=== PATIENT | male | born 1970 | race Hispanic/Latino ===

== ENCOUNTER 2019-08-04 21:25 | Emergency (ER) | payer MEDICARE, SELFPAY ==
--- NOTE | ~2019-08-04 | XR_ITS ---
XR foot RT min 3V 08/04/2019 21:45 INDICATION: Patient stepped on nail. Laceration to the plantar aspect of the foot. PROCEDURE: 4 views right foot COMPARISON: No prior studies for comparison. FINDINGS: Fracture, dislocation or subluxation is not identified. Lisfranc joint intact. There are ar terial calcifications, advanced for age. The soft tissues appear within normal limits. No foreign alexx dies are identified. IMPRESSION: 1: NO ACUTE BONE OR JOINT ABNORMALITY IDENTIFIED. Reviewed, dictated and finalized at location A.
[2019-08-04 21:28] VITALS: BP 168/106; PULSE 113; RESP 16; TEMP 36.7; O2SAT 100
--- NOTE | 2019-08-04 21:33 | ED.WOUNDLAC ---
HPI - Wound/Laceration General Chief Complaint: Wound/Laceration Stated Complaint: STEPPED ON A NAIL Time Seen by Provider: 08/04/19 21:31 Source: patient Mode of arrival: ambulatory Limitations: no limitations History of Present Illness HPI narrative: A 49 y/o male presents to the ED with c/o right foot injury. Pt states that earlier today he stepped on a nail. He notes that he was wearing shoes, but the nail went through the shoe. Pt is up-to-date on his Tetanus shot. He adds that he took a [place]ese pill at home and believes it might have been Amoxicillin. Pt reports right foot pain, but denies numbness and tingling. Onset (ago): hour(s) (Today) Extremity Location: Right: foot Patient tetanus UTD: Yes Context: accidental Associated symptoms: pain Related Data Allergies Allergy/AdvReac Type Severity Reaction Status Date / Time No Known Allergies Allergy Verified 08/04/19 21:39 Review of Systems Review of Systems: All systems reviewed & are unremarkable except as noted in HPI and below Musculoskeletal: Musculoskeletal: Reports arthralgias (Right foot) Neurologic: Denies numbness and Denies tingling PMFSH Past Medical History Medical History (Updated 08/04/19 @ 22:31 by Deniz Austin DO) Cataracts, bilateral Chronic back pain History of angina History of blood transfusion History of chemotherapy History of radiation therapy Non-Hodgkin's lymphoma Seizure Surgical History Surgical History (Updated 08/04/19 @ 21:40 by Stephanie Emanuel) History of cataract surgery History of neck surgery History of spinal fusion Social History Social History Smoking status: Former smoker Alcohol intake: current Gender identity (if verbalized by the patient): Male Exam Narrative: Exam Narrative: APPEARANCE: No acute distress, nontoxic, resting in bed Eyes: EOMI HEENT: Normocephalic, atraumatic, RESPIRATORY: No respiratory distress MUSCULOSKELETAl: The base of the right foot is tender to palpation with small puncture wound present. No active bleeding or surrounding signs of infection no erythema no drainage from the wound, there is no wound on the dorsal aspect of the foot patient to move all extremities, dorsalis pedis pulse 2+, neurovascular intact NEURO: Awake and alert. Following commands, speech normal, no focal deficits SKIN:: Warm, dry. Normal Color no rash or lesions Course Course Emergency Course: Discussed with patient results of workup and diagnosis. Discussed need for follow-up with primary care, proper use of medication, and reasons to return to the emergency department. Patient understands and agrees to current treatment plan Vital Signs Vital signs: Vital Signs Temperature 98.1 F 08/04/19 21:28 Pulse Rate 113 H 08/04/19 21:28 Respiratory Rate 16 08/04/19 21:28 Blood Pressure 168/106 H 08/04/19 21:28 Pulse Oximetry 100 08/04/19 21:28 Temperature 98.1 F 08/04/19 21:28 Pulse Rate 113 H 08/04/19 21:28 Respiratory Rate 16 08/04/19 21:28 Blood Pressure 168/106 H 08/04/19 21:28 Pulse Oximetry 100 08/04/19 21:28 MDM - Wound/Laceration Imaging Data Radiologist's impression: ITS Impressions Foot X-Ray 08/04/19 21:59 IMPRESSION: 1: NO ACUTE BONE OR JOINT ABNORMALITY IDENTIFIED. Discharge Plan Discharge Clinical Impression: Puncture wound of foot, right Patient Disposition: Home, Self-Care Condition: Stable Instructions: Antibiotic Form, Puncture Wound (ED) Additional Instructions: Return for increasing pain, signs of infection or any other symptoms of concern. Please soak your foot in warm water for approximately 10 minutes 3 times a day for the next 3 days Prescriptions: New ibuprofen [IBU] 600 mg tablet 600 mg PO Q6H PRN (Reason: pain) Qty: 20 RF: 0 ciprofloxacin HCl [Cipro] 500 mg tablet 500 mg PO Q12H Qty: 20 RF: 0 Follow-up/Referrals: Kenny,Toshia Stafford MD
[2019-08-04] MEDS: IBUPROFEN 600 MG TABLET PO (22:15)
[2019-08-04] MEDS: CIPROFLOXACIN 500 MG TAB PO (22:15)
== END 2019-08-04 22:42 | disposition home or self-care (01) ==
PROVIDERS: Emergency Provider Emergency Medicine; PCP Family Medicine
DX: S91.331A Puncture wound without foreign body, right foot, initial encounter (principal); W45.0XXA Nail entering through skin, initial encounter
CPT/HCPCS: 73630; 99283; A9270

== ENCOUNTER 2019-11-17 00:56 | Emergency (ER) | payer MEDICARE, SELFPAY ==
--- NOTE | ~2019-11-17 | XR_ITS ---
EXAMINATION: XR chest 2V DATE: 11/17/2019 01:33 INDICATION: Chest pain TECHNIQUE: PA and lateral views of the chest were obtained. COMPARISON: Chest CT dated 12/09/2018 FINDINGS: The lungs remain clear with no focal airspace opacities, pulmonary edema, pleural effusion or pneumot horax. The cardiomediastinal silhouette is normal. Postoperative changes at the lower cervical spine IMPRESSION: 1. No acute cardiopulmonary disease. Reviewed, dictated and finalized at location A.
[2019-11-17 00:58] VITALS: BP 187/108; PULSE 67; RESP 16; TEMP 36.8; O2SAT 100
--- NOTE | 2019-11-17 01:03 | ECG_ITS ---
Measurements Intervals [place] Rate: 61 P: 64 [place]: 198 QRS: -34 QRSD: 105 T: -10 QT: 410 QTc: 415 Interpretive Statements SINUS RHYTHM LEFT AXIS DEVIATION VOLTAGE CRITERIA FOR LVH BORDERLINE T WAVE ABNORMALITY- INFERIOR LEADS BORDERLINE ECG Electronically Signed On 11-17-2019 7:37:29 CDT by Renard Butler D.O.
[2019-11-17] MEDS: ASPIRIN 81 MG CHEWABLE TABLET 324 MG PO (01:18)
[2019-11-17 01:29] LABS: Basophils Absolute Auto 0.1 K/mm3 (0.0-0.1); Basophils Percent Auto 0.9 % (0.2-1.2); Eosinophils Absolute Auto 0.4 K/mm3 (0-0.3); Eosinophils Percent Auto 4.1 % (0-4.4); Hematocrit 42.3 % (42.0-52.0); Immature Granulocyte Absolute 0.02 K/mm3 (0.00-0.031); Immature Granulocyte Percent A 0.2 % (0-0.5); Lymphocytes Absolute Auto 5.45 K/mm3 (0.9-3.2); Lymphocytes Percent Auto 63.2 % (18.3-44.2); Mean Corpuscular HGB Conc 35.5 g/dl (32-36); Mean Corpuscular Hemoglobin 29.9 pg (26-34); Mean Corpuscular Volume 84.3 fl (80-100); Mean Platelet Volume 9.5 fl (7.4-10.4); Monocytes Absolute Auto 0.6 K/mm3 (0.1-0.6); Monocytes Percent Auto 6.6 % (2.6-8.5); Neutrophils Absolute Auto 2.2 K/mm3 (1.3-6.7); Platelet Count Result 185 k/mm3 (150-375); Red Blood Count 5.02 M/mm3 (4.6-6.20); Red Cell Distribution Width 14.2 % (11.5-14.5); White Blood Count 8.6 K/mm3 (4.5-10.0)
--- NOTE | 2019-11-17 01:29 | ED.CHESTPAIN ---
HPI - Chest Pain General Chief Complaint: Chest Pain Stated Complaint: chest pain Time Seen by Provider: 11/17/19 01:06 History of Present Illness HPI narrative: Patient is a 49-year-old male who presents ER with left-sided chest pain. Reports the pain is like a cramp in the left upper part of his chest. It lasts for several seconds at a time and then goes away. Is happening for about an hour and has resolved since arriving at the ER. Had no nausea/vomiting/diaphoresis/dyspnea. Has not had similar symptoms before. He does report he was boxing couple days ago which may have aggravated some muscular issues. No lower extremity swelling. Related Data Home Medications Medication Instructions Recorded Confirmed No Home Medications 11/17/19 11/17/19 Allergies Allergy/AdvReac Type Severity Reaction Status Date / Time No Known Allergies Allergy Verified 11/17/19 01:02 Review of Systems Review of Systems: All systems reviewed & are unremarkable except as noted in HPI and below Constitutional: Constitutional: Denies chills, Denies fever(s) and Denies weakness ENT: Denies nasal congestion and Denies sore throat Cardiovascular: Cardiovascular: Reports chest pain, Denies rapid heart rate and Denies radiating jaw, neck or arm pain Respiratory: Respiratory: Denies cough, Denies dyspnea and Denies wheezing Gastrointestinal: Gastrointestinal: Denies abdominal pain, Denies nausea and Denies vomiting PMFSH Past Medical History Medical History (Updated 11/17/19 @ 04:40 by Farzad Nguyen MD) Cataracts, bilateral Chronic back pain History of angina History of blood transfusion History of chemotherapy History of radiation therapy Non-Hodgkin's lymphoma Seizure Surgical History Surgical History (Updated 08/04/19 @ 21:40 by Stephanie Emanuel) History of cataract surgery History of neck surgery History of spinal fusion Social History Social History Smoking status: Former smoker Alcohol intake: current Gender identity (if verbalized by the patient): Male Exam Narrative: Exam Narrative: GENERAL: Well-appearing, well-nourished, and in no acute distress. HEAD: Normocephalic, atraumatic. ENT: Mucous membranes moist. CHEST: Clear to auscultation. No respiratory distress. No reproducible tenderness. HEART: Regular rate and rhythm. Normal peripheral pulses. ABDOMEN: Soft, nontender, nondistended. EXTREMITIES: Normal range of motion. No edema. SKIN: Warm, dry, no rash. NEURO: Alert and oriented x3. Course Course Emergency Course: Trop negative x 2. No CP here. D/c. Vital Signs Vital signs: Vital Signs Temperature 98.2 F 11/17/19 00:58 Pulse Rate 67 11/17/19 00:58 Respiratory Rate 16 11/17/19 00:58 Blood Pressure 187/108 H 11/17/19 00:58 Pulse Oximetry 100 11/17/19 00:58 Temperature 98.2 F 11/17/19 00:58 Pulse Rate 65 11/17/19 02:06 Respiratory Rate 19 11/17/19 02:06 Blood Pressure 151/95 H 11/17/19 02:06 Pulse Oximetry 96 11/17/19 02:06 MDM - Chest Pain Lab Data Result diagrams: 11/17/19 01:24 11/17/19 01:24 Labs: Lab Results 11/17/19 11/17/19 11/17/19 Range/Units 01:24 01:24 01:24 WBC 8.6 (4.5-10.0) K/mm3 RBC 5.02 (4.6-6.20) M/mm3 Hgb 15.0 (14.0-18.0) g/dL Hct 42.3 (42.0-52.0) % MCV 84.3 (80-100) fl MCH 29.9 (26-34) pg MCHC 35.5 (32-36) g/dl RDW 14.2 (11.5-14.5) % Plt Count 185 (150-375) k/mm3 MPV 9.5 (7.4-10.4) fl Immature Gran % (Auto) 0.2 (0-0.5) % Neut % (Auto) 25.0 L (45.5-73.1) % Lymph % (Auto) 63.2 H (18.3-44.2) % [place] % (Auto) 6.6 (2.6-8.5) % Eos % (Auto) 4.1 (0-4.4) % Baso % (Auto) 0.9 (0.2-1.2) % Lymph # (Auto) 5.45 H (0.9-3.2) K/mm3 [place] # (Auto) 0.6 (0.1-0.6) K/mm3 Eos # (Auto) 0.4 H (0-0.3) K/mm3 Baso # (Auto) 0.1 (0.0-0.1) K/mm3 Abs Immat Gran (auto) 0.0
[2019-11-17 01:45] LABS: Blood Urea Nitrogen 12 mg/dL (9-20); Calcium 9.8 mg/dL (8.4-10.2); Carbon Dioxide 26 mmol/L (22-30); Chloride 106 mmol/L (98-107); Estimated CRCL calculation 122 ml/min; Estimated Glomerular Filt Rate > 60; Glucose 122 mg/dL (75-110); Potassium 3.6 mmol/L (3.4-5.0); Sodium 138 mmol/L (137-145)
[2019-11-17 01:47] LABS: Partial Thromboplastin Time 27.9 SECONDS (22.3-36.8)
[2019-11-17 01:57] LABS: Troponin I 0.015 ng/mL (0.000-0.034)
[2019-11-17 02:06] VITALS: BP 151/95; PULSE 65; RESP 19; O2SAT 96
[2019-11-17 03:50] VITALS: BP 139/86; PULSE 57; RESP 16; O2SAT 97
[2019-11-17 04:33] LABS: Troponin I < 0.012 ng/mL (0.000-0.034)
[2019-11-17 04:51] VITALS: BP 154/91; PULSE 53; RESP 14; TEMP 37; O2SAT 99
== END 2019-11-17 04:53 | disposition home or self-care (01) ==
PROVIDERS: Emergency Provider Emergency Medicine; PCP Family Medicine
DX: R07.9 Chest pain, unspecified (principal); Z85.72 Personal history of non-Hodgkin lymphomas; Z92.21 Personal history of antineoplastic chemotherapy; Z92.3 Personal history of irradiation; Z98.42 Cataract extraction status, left eye; Z98.41 Cataract extraction status, right eye; Z98.1 Arthrodesis status; Z87.891 Personal history of nicotine dependence; R94.31 Abnormal electrocardiogram [ECG] [EKG]
CPT/HCPCS: 36415; 71046; 80048; 84484; 85025; 85610; 85730; 93005; 99284; A9270

== ENCOUNTER 2020-10-13 19:33 | Emergency (ER) | payer MEDICARE, SELFPAY ==
[2020-10-13 20:08] VITALS: BP 156/90; PULSE 92; RESP 18; TEMP 36.4; O2SAT 98
--- NOTE | 2020-10-13 21:10 | ED.URI ---
HPI - URI/Sore Throat General Chief Complaint: Upper Respiratory Infection Stated Complaint: wants to be checked for Covid Time Seen by Provider: 10/13/20 20:34 Source: patient Mode of arrival: ambulatory Limitations: no limitations History of Present Illness HPI Narrative: Patient is a 50-year-old male who presents complaining of cough and runny nose for 1 day. He reports at family event yesterday and had positive exposure to Covid. Patient is unvaccinated. He denies chest pain or shortness of breath. He denies all other complaints, requesting Covid testing at this time. MD elicited complaint: cough and rhinorrhea Related Data Home Medications Medication Instructions Recorded Confirmed No Home Medications 11/17/19 11/17/19 Allergies Allergy/AdvReac Type Severity Reaction Status Date / Time No Known Allergies Allergy Verified 11/17/19 01:02 Review of Systems Review of Systems: Narrative: CONSTITUTIONAL: Denies fever, chills, or sweats. EYES: Denies visual changes, redness, or discharge. ENT: Reports rhinorrhea CARDIOVASCULAR: Denies chest pain, palpitations, or edema. RESPIRATORY: Reports cough GASTROINTESTINAL: Denies abdominal pain, nausea, vomiting, or diarrhea. GENITOURINARY: Denies dysuria or hematuria. SKIN: Denies rash or itching. MUSCULOSKELETAL: Denies back pain, joint pain, or myalgia. NEUROLOGIC: Denies headache, numbness, dizziness, or weakness. PSYCHIATRIC: Denies anxiety or depression. [facility] Past Medical History Medical History Cataracts, bilateral Chronic back pain History of angina History of blood transfusion History of chemotherapy History of radiation therapy Non-Hodgkin's lymphoma Seizure Surgical History Surgical History History of cataract surgery History of neck surgery History of spinal fusion Social History Social History Smoking status: Former smoker Alcohol intake: current Gender identity (if verbalized by the patient): Male Comments At the time of signature, I have reviewed and agree with nursing past medical, surgical, social, and family history unless otherwise noted. Please see nursing chart for further information. There is no relevant family history pertinent to the presenting complaint. Exam Narrative: Exam Narrative: GENERAL: Well-appearing, well-nourished, and in no acute distress. HEAD: Normocephalic, atraumatic. EYES: EOMI. No redness or drainage. Conjunctiva are normal. ENT: Mucous membranes pink and moist. Nares clear. No rhinorrhea. Throat normal. Uvula midline. NECK: AROM. Supple. No lymphadenopathy. CHEST: No respiratory distress. Clear to auscultation. HEART: Regular rate and rhythm. No murmur appreciated. Normal peripheral pulses. EXTREMITIES: Normal range of motion. No edema. SKIN: Warm, dry, no rash. NEURO: No focal deficits. Alert and oriented x3. Gait steady. PSYCH: Normal affect. No signs of depression or anxiety. Course Vital Signs Vital signs: Vital Signs Temperature 36.4 C L 10/13/20 20:08 Pulse Rate 92 10/13/20 20:08 Respiratory Rate 18 10/13/20 20:08 Blood Pressure 156/90 H 10/13/20 20:08 Pulse Oximetry 98 10/13/20 20:08 Temperature 36.4 C L 10/13/20 20:08 Pulse Rate 92 10/13/20 20:08 Respiratory Rate 18 10/13/20 20:08 Blood Pressure 156/90 H 10/13/20 20:08 Pulse Oximetry 98 10/13/20 20:08 Reviewed. Patient has been instructed to follow-up with his PCP regarding his blood pressure. MDM - URI/Sore Throat MDM Narrative Medical decision making narrative: Patient tested for Covid at this time. Discussed quarantine. Patient aware of red flags of when to return to the emergency department. Patient is stable for discharge home with outpatient follow-up as instructed. Differential Diagnosis Differential diagnosis: Likely upper
[2020-10-14 19:55] LABS: SARS-CoV-2 RNA PCR Negative
== END 2020-10-13 21:41 | disposition home or self-care (01) ==
PROVIDERS: Emergency Provider Nurse Practitioner
DX: J06.9 Acute upper respiratory infection, unspecified (principal); Z87.891 Personal history of nicotine dependence; Z85.72 Personal history of non-Hodgkin lymphomas; Z92.21 Personal history of antineoplastic chemotherapy; Z92.3 Personal history of irradiation; Z98.42 Cataract extraction status, left eye; Z98.41 Cataract extraction status, right eye; Z20.822 Contact with and (suspected) exposure to COVID-19
CPT/HCPCS: 99283; C9803; U0003; U0005

== ENCOUNTER 2020-11-18 03:56 | Emergency (ER) | payer MEDICARE, MEDICAID, SELFPAY ==
--- NOTE | ~2020-11-18 | CT_ITS ---
EXAMINATION: CT soft tissue neck w con DATE: 11/18/2020 05:26 INDICATION: Left jaw and ear pain TECHNIQUE: Computed tomography (CT) of the neck was performed with 75 mL Omnipaque-350 intravenous co ntrast. The dose-length product was 508.57 mGy-cm. Automated exposure control and iterative reconstru ction technique were employed. COMPARISON: None FINDINGS: No soft tissue or osseous abnormality, particularly at the mastoid air cells. There is a mu cous retention cyst in the left maxillary sinus. Mastoids are pneumatized. No abnormal contrast enhan cement. No cervical lymphadenopathy. Lung apices are unremarkable. There is surgical fixation at C4-5 through C6-7. IMPRESSION: 1. No significant abnormality of the cervical spine to explain patient's symptoms. Reviewed, dictated and finalized at location A. IMPRESSION: 1. No significant abnormality of the cervical spine to explain patient's sympto ms.
[2020-11-18 04:01] VITALS: BP 164/95; PULSE 84; RESP 16; TEMP 36.8; O2SAT 95
--- NOTE | 2020-11-18 04:26 | ED.DENTAL ---
HPI - Dental/Oral General Chief complaint: Dental/Oral Stated complaint: Left dental/jaw pain Time Seen by Provider: 11/18/20 04:26 History of Present Illness HPI Narrative: Left jaw pain for a few days. Radiates throughout the ear and entire left face. Not better or worse with anything. He does not feel any swelling or sores in that side of the mouth. He does say his hear is mildly muffled. He has had most of the teeth on that side of the mouth pulled and usably wears partials. Related Data Allergies Allergy/AdvReac Type Severity Reaction Status Date / Time No Known Allergies Allergy Verified 11/18/20 04:06 Review of Systems Review of Systems: All systems reviewed & are unremarkable except as noted in HPI and below Constitutional: Constitutional: Denies chills, Denies fever(s) and Denies weakness ENT: Denies dizziness and Denies sore throat Cardiovascular: Cardiovascular: Denies chest pain Respiratory: Respiratory: Denies dyspnea Gastrointestinal: Gastrointestinal: Denies nausea Neurologic: Denies numbness and Denies weakness PMFSH Past Medical History Medical History Cataracts, bilateral Chronic back pain History of angina History of blood transfusion History of chemotherapy History of radiation therapy Non-Hodgkin's lymphoma Seizure Surgical History Surgical History History of cataract surgery History of neck surgery History of spinal fusion Social History Social History Smoking status: Former smoker Alcohol intake: current Gender identity (if verbalized by the patient): Male Exam Const: General: no acute distress and alert Nutritional Appearance: well nourished Orientation/consciousness: patient oriented x3 HENMT: Head: normal to inspection Ears: Abnormal EAC present other (left mildly narrowed); no erythema and no edema General nose exam: Normal external nose present Face and sinus: normal facial exam and sinuses nontender Mouth: Yes Normal oral and palatal mucosa present and Yes moist mucous membranes Eyes: Pupils: Equal, round and reactive pupils present EOM: EOMs intact bilaterally Neck: Neck: normal visual inspection and no lymphadenopathy Resp: Effort & Inspection: normal respiratory effort Auscultation: clear to auscultation bilaterally Cardio: Rate: regular rate Rhythm: regular rhythm Neuro: General: patient oriented x3, moves all extremities and CN's II-XI intact bilaterally Course Vital Signs Vital signs: Vital Signs Temperature 36.8 C 11/18/20 04:01 Pulse Rate 84 11/18/20 04:01 Respiratory Rate 16 11/18/20 04:01 Blood Pressure 164/95 H 11/18/20 04:01 Pulse Oximetry 95 11/18/20 04:01 Temperature 36.8 C 11/18/20 04:01 Pulse Rate 79 11/18/20 06:32 Respiratory Rate 18 11/18/20 06:32 Blood Pressure 160/53 H 11/18/20 06:32 Pulse Oximetry 97 11/18/20 06:32 MDM - Dental/Oral Differential Diagnosis Differential diagnosis: Likely gingival abscess, dental abscess and other (otitis media) Medical Records Attestation: I reviewed the patient's medical records. Lab Data Attestation: I reviewed the patient's lab results. Result diagrams: 11/18/20 05:18 Labs: Lab Results 11/18/20 Range/Units 05:18 Creatinine 1.00 (0.8-1.5) mg/dL Estim Creat Clear Calc 82 ml/min Estimated GFR > 60 (59 - ) Imaging Data Radiologist's impression: ITS Impressions Soft Tissue Neck CT 11/18/20 07:44 IMPRESSION: 1. No significant abnormality of the cervical spine to explain patient's symptoms. Discharge Plan Discharge Clinical Impression: Maxillary sinusitis Patient Disposition: Home, Self-Care Condition: Stable Instructions: Antibiotic Form, Sinusitis (ED) Prescriptions: New amoxicillin-pot clavulanate [Augmentin]
--- NOTE | 2020-11-18 05:24 | ECG_ITS ---
Measurements Intervals [place] Rate: 67 P: 78 MS: 253 QRS: -26 QRSD: 98 T: -16 QT: 420 QTc: 446 Interpretive Statements SINUS RHYTHM WITH FIRST DEGREE AV BLOCK VOLTAGE CRITERIA FOR LVH BORDERLINE ST-T WAVE ABNORMALITY- INFERIOR LEADS BASELINE ARTIFACT- I, II, III, AVR, AVL, AVF, V1-V2 ABNORMAL ECG Electronically Signed On 11-18-2020 6:32:23 CDT by Renard Butler D.O.
[2020-11-18] MEDS: AMOXICILLIN/CLAVULANATE K 875-125 MG TAB 1 TABLET PO (06:31)
[2020-11-18 06:32] VITALS: BP 160/53; PULSE 79; RESP 18; O2SAT 97
[2020-11-21 07:47] LABS: Estimated CRCL calculation 82 ml/min; Estimated Glomerular Filt Rate > 60
== END 2020-11-18 06:33 | disposition home or self-care (01) ==
PROVIDERS: Emergency Provider Emergency Medicine; PCP Family Medicine
DX: J32.0 Chronic maxillary sinusitis (principal)
CPT/HCPCS: 70491; 93005; 99284; A9270; Q9967

== ENCOUNTER 2021-06-14 19:39 | Emergency (ER) | payer MEDICARE, MEDICAID, SELFPAY ==
[2021-06-14] VITALS (9 sets, daily range): BP systolic 137–149; BP diastolic 98–102; PULSE 81–98; RESP 16–23; TEMP 36.3–37.2; O2SAT 97–99
--- NOTE | 2021-06-14 22:35 | ED.URI ---
HPI - URI/Sore Throat General Chief Complaint: Upper Respiratory Infection Stated Complaint: FEVER,SORE THROAT Time Seen by Provider: 06/14/21 22:01 Source: patient Mode of arrival: ambulatory Limitations: no limitations History of Present Illness HPI Narrative: This is 51 year old male who presents for evaluation of upper respiratory infection . Patient states he was exposed to a couple people on Friday that were positive for covid. He states he was at bar. Today he developed fever, sore throat and cough. She denies runny nose, chest pain, shortness of breath, nausea, vomiting or diarrhea. Related Data Allergies Allergy/AdvReac Type Severity Reaction Status Date / Time No Known Allergies Allergy Verified 06/14/21 21:41 Review of Systems Review of Systems: All systems reviewed & are unremarkable except as noted in HPI and below PMFSH Past Medical History Medical History Cataracts, bilateral Chronic back pain History of angina History of blood transfusion History of chemotherapy History of radiation therapy Non-Hodgkin's lymphoma Seizure Surgical History Surgical History History of cataract surgery History of neck surgery History of spinal fusion Social History Social History Smoking status: Former smoker Alcohol intake: current Gender identity (if verbalized by the patient): Male Sexual Orientation (if Verbalized by the Patient): Straight or Heterosexual Exam Const: General: no acute distress and alert Orientation/consciousness: patient oriented x3 Eyes: EOM: EOMs intact bilaterally Chest: Chest palpation & inspection: normal inspection of the chest Resp: Effort & Inspection: normal respiratory effort and no retractions Auscultation: clear to auscultation bilaterally Cardio: Rate: regular rate Rhythm: regular rhythm Heart sounds: no murmurs GI: GI Palp: Yes Soft to palpation, No Tenderness to palpation present (GI) and No Guarding due to palpation present (GI) Auscultation: normal bowel sounds Skin: General skin exam: normal color Rashes: no rashes Neuro: General: patient oriented x3, moves all extremities and CN's II-XI intact bilaterally Extrem: General: normal to inspection Psych: Mental Status: mental status grossly normal Affect: normal affect Course Reevaluation(s) Reevaluation #1: I Discussed with patient that he should assume he has covid and quarantine. He understands his results will take 24-48 hours to return. He was given return precautions. Date: 06/14/21 Time: 23:10 Vital Signs Vital signs: Vital Signs Temperature 97.4 F L 06/14/21 19:42 Pulse Rate 98 06/14/21 19:42 Respiratory Rate 18 06/14/21 19:42 Blood Pressure 149/98 H 06/14/21 19:42 Pulse Oximetry 98 06/14/21 19:42 Temperature 99.0 F 06/14/21 21:36 Pulse Rate 86 06/14/21 23:33 Respiratory Rate 18 06/14/21 23:33 Blood Pressure 149/99 H 06/14/21 23:33 Pulse Oximetry 97 06/14/21 23:33 MDM - URI/Sore Throat Lab Data Labs: Lab Results 06/14/21 Range/Units 22:49 SARS-CoV-2 RNA (RT-PCR) Pending Influenza A Screen Negative Reference Range: Negative Influenza B Screen Negative Reference Range: Negative Strep Screen Presumptive Negative *(Reference Range: Negative)* Discharge Plan Discharge Clinical Impression: Upper respiratory infection, Person under investigation for COVID-19 Patient Disposition: Home, Self-Care Condition: Stable Instructions: Antibiotic Form, Upper Respiratory Infection (ED), COVID-19 (Coronavirus Disease 2019) (ED) Additional Instructions: you can take over the coun
[2021-06-15 21:56] LABS: SARS-CoV-2 RNA PCR Positive
== END 2021-06-14 23:36 | disposition home or self-care (01) ==
PROVIDERS: Emergency Provider General Practice; PCP Family Medicine
DX: U07.1 COVID-19 (principal); Z98.42 Cataract extraction status, left eye; Z98.41 Cataract extraction status, right eye; Z92.21 Personal history of antineoplastic chemotherapy; Z92.3 Personal history of irradiation; Z85.72 Personal history of non-Hodgkin lymphomas; Z98.1 Arthrodesis status; Z87.891 Personal history of nicotine dependence
CPT/HCPCS: 87081; 87804; 87880; 99283; C9803; U0003; U0005

== ENCOUNTER 2024-06-26 13:10 | Emergency (ER) | payer OTHER, MEDICARE, SELFPAY ==
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
--- OUTSIDE RECORDS SUMMARY | 2024-06-26 13:12 | XMS_ITS | Continuity of Care Document ---
[facility] Address [address] [place] [address] Phone Care Team Providers Care Airplane Inspector Name Role Phone Piero KRAMER, Eliezer Unavailable Unavailable Advance Directives Directive Yes / No Effective Date File Name No Information Encounters Encounter Description Practice Location Reason(s) For Visit Diagnoses Date Provider Providers Copied on Encounter [facility] [employer] [facility], [address], [place], [place], [id number], [place] tel:[phone] [facility] Piero Martins. [address] , [place], [place], [id number], [place]. tel:[phone] Family History Family Member Type Diagnosis Age At Onset No Information Payers Payer name Insurance type Covered alliance party ID Authoriza tion(s) No Information Social History Type Description Quantity Date Captured Comments Sex Male Smoking Status No Information Chief Complaint And Reason For Visit No Information Reason For Referral Reason For Referral No Information History Of Present Illness Encounter Date Complaint History Of Prese nt Illness No Information Functional Status Date Functional Assessmen t No Information Instructions Date Instruction Additional Infor mation No Information Assessments Type Assessment Date No Information Patient Care Teams Name Effective Dates (start - stop) Status Members No Information
--- OUTSIDE RECORDS SUMMARY | 2024-06-26 13:12 | XMS_ITS | Data Portability ---
Author Organization Katya SANTANAokduy Metzger Address [address] [place] [address] Assessment Encounter Date Assessment Date Assessment LastModified by Organization Details LastModified Time 11/23/2020 11/23/2020 referred to dental clinic at the [facility]. Encouraged to get the coronavirus vaccines. [email or web address] Not available 11/23/2020 10:52:42 Plan of Treatment Reminders Order Date Submit Date Provider Last Modified By Organization Details Last Modified Time Details Appointments None recorded. Lab CMP, serum or plasma 2018 019 [facility], [address] [place] [address], [address], [place], [address], 9 17:09:06 Referral None recorded. Procedures None recorded. Surgeries None recorded. Imaging None recorded. Medication Orders omeprazol e 20 mg capsule,d elayed release 2018 019 [facility][id number], [address], [place], [place], [id number], 9 17:09:03 Nitroling ual 400 mcg/spray [address] [facility] #[id number], [address], [place], [place], [id number], 1 10:04:41 omeprazol e magnesium 20 mg capsule,d elayed release 2019 020 [facility] #[id number], [address], [place], [id number], 0 10:07:36 clindamyc in HCl 300 mg capsule 2020 021 [email or web address] [facility] #[id number], [address], [place], [place], [id number], 23:05:26 Patient TargetsNo targets recorded. Patient Instructions Encounter Date Encounter Id Patient Instructions Last Modified By Organization Details Last Modified Time 12/17/2018 [id number] chest pain: care instructions [email or web address] Not available 12/17/2018 17:08:58 10/20/2019 [id number] gastroesophageal reflux disease (GERD): care instructions [email or web address] Not available 10/20/2019 14:26:10 11/23/2020 [id number] abscessed tooth: care instructions [email or web address] Not available 11/23/2020 10:44:53 Reason for Referral None Reported. Results Created Date Observation Date Name Description Value Unit Range Abnormal Flag Note LastModifiedBy Organization Detail LastModifiedTime 01/28/2001/27/2019 MRI, brain + brain stem, w/o contr ast No observ ation record ed. [facility] ([facility]) [address] [place] [address], [address], 02/03/2019 13:46:54 08/04/19 20 08/04/2019 XR, foot, 3 or more view No observ ation record ed. [place] [address], [place], [address], 08/05/2019 17:39:07 11/17/19 20 11/17/2019 XR, chest , 2 view No observ ation record ed. [address] [place] [address], [address], 11/18/2019 11:06:00 11/19/19 21 11/18/2020 CT, neck, soft tissu e, w/o contr ast No observ ation record ed. [place] [address], [place], [address], 11/21/2020 17:40:26 Result Notes None recorded. Problems No Known Problems Procedures Surgical History None recorded. Imaging Results Imaging Date Name Status LastModified by Organiz ation Details LastModified Time 01/27/2019 MRI, brain + brain stem, w/o contrast completed [facility] ([facility]) [address] [place] [address] [address] [facility], [place], [address], 02/03/2019 13:46:54 08/04/2019 XR, foot, 3 or more view completed [address], [address], 08/05/2019 17:39:07 11/17/2019 XR, chest, 2 view completed [address], [address], 11/18/2019 11:06:00 11/18/2020 CT, neck, soft tissue, w/o contrast completed [address], [address], 11/21/2020 17:40:26 Procedure Notes None recorded. Medical Equipment None Reported. Allergies No known drug allergies Medications Name Sig Start Date Stop Date Status Note LastModified by Organization Details LastModified Time cyclobenzap rine 10 mg tablet 09/23 completed Not Available Not Available Not Available clindamycin HCl 300 mg capsule TAKE 1 CAPSULE BY MOUTH THREE TIMES DAILY active Not Available Not Available No t Available azithromyci n 250 mg tablet TAKE 2 TABLETS (500 MG) BY ORAL ROUTE ONCE DAILY FOR 1 DAY THEN 1 TABLET (250 MG) BY ORAL ROUTE ONCE DAILY FOR 4 DAYS 09/23 completed Not Available Not Available Not Available ibuprofen 800 mg tablet Take 1 tablet 3 times a day by oral route as needed. 09/23 completed Not Available Not Available Not Available ofloxacin 0.3 % eye drops 02/20 completed Not Available Not Available Not Available isosorbide mononitrate ER 30 mg tablet,exte nded release 24 hr TAKE 1 TABLET BY MOUTH EVERY DAY AT BEDTIME 11/23 completed Not Available Not Available Not Available ciprofloxac in 500 mg tablet active Not Available Not Available Not Available tramadol 50 mg tablet 02/20 completed Not Available Not Available Not Available amoxicillin 875 mg tablet Take 1 tablet twice a day by oral route for 10 days. 09/23 completed Not Available Not Available Not Available hydrocodone 7.5 mg-acetamin ophen 325 mg tablet 02/20 completed Not Available Not Available Not Available orphenadrin e citrate ER 100 mg tablet,exte nded release 1 tablet 2x per day as needed for muscle spasms; may cause drowsines s 09/23 completed Not Available Not Available Not Available nitroglycer in 0.4 mg sublingual tablet take one every five minutes as neded for chest pain active Not Available Not Available No t Available omeprazole 20 mg capsule,del ayed release TAKE ONE CAPSULE BY MOUTH EVERY DAY active Not Available Not Available No t Available ibuprofen 600 mg tablet active Not Available Not Available Not Available naproxen 500 mg tablet TAKE 1 TABLET BY MOUTH TWICE DAILY NEEDED 09/23 completed Not Available Not Available Not Available amoxicillin 875 mg-potassiu m clavulanate 125 mg tablet TAKE 1 TABLET BY MOUTH EVERY 12 HOURS active Not Available Not Available No t Available Nitrolingua l 400 mcg/spray one spray under tongue for chest pain, may repeat in 5 minutes if needed. 11/23 completed Not Available Not Available Not Available chlorhexidi ne gluconate 0.12 % mouthwash 02/20 completed Not Available Not Available Not Available omeprazole magnesium 20 mg capsule,del ayed release Take 1 capsule every day by oral route. 03/24 completed Not Available Not Available Not Available Vitals Date Recorded Body height Provider Name an d Address Organization Details Last Updated DateTime 12/17/2018 177.8 cm Anamaria Casas MA [facility] 12/17 16:03:10 Date Recorded Body mass index (BMI) Body weight Provider Name and Address Organization Details Last Updated DateTime 12/17/2018 28.7 kg/m2 66068.47 g Anamaria Casas MA [facility] 12/17/2018 16:03:15 Date Recorded Oxygen saturation Oxygen saturation in Arterial blood by Pulse oximetry Provider Name and Address Organization Details Last Updated DateTime 12/17/2018 996 % 996 % Anamaria Casas MA [facility] 12/17/2018 16:07:25 Date Recorded Heart rate Provider Name an d Address Organization Details Last Updated DateTime 12/17/2018 88 /min Anamaria Casas MA [facility] 12/17 16:07:29 Date Recorded Body temperature Provider Name a nd Address Organization Details Last Updated DateTime 12/17/2018 98.4 [degF] Anamaria Casas MA [facility] 12/17/2018 16:07:36 Date Recorded Body height Provider Name an d Address Organization Details Last Updated DateTime 11/23/2020 177.8 cm Gillian Maldonado MA [facility] 11/23 10:09:08 Date Recorded Body mass index (BMI) Body weight Provider Name and Address Organization Details Last Updated DateTime 11/23/2020 28.7 kg/m2 69522.47 g Gillian Maldonado MA [facility] 11/23/2020 10:09:13 Date Recorded Oxygen saturation Oxygen saturation in Arterial blood by Pulse oximetry Provider Name and Address Organization Details Last Updated DateTime 11/23/2020 97 % 97 % Gillian Maldonado MA [facility] 11/23/2020 10:09:15 Date Recorded Heart rate Provider Name an d Address Organization Details Last Updated DateTime 11/23/2020 71 /min Gillian Maldonado MA [facility] 11/23 10:09:17 Date Recorded Systolic blood pressure Diastolic blood pressure Provider Name and Address Organization Details Last Updated DateTime 12/17/2018 122 mm[Hg] 86 mm[Hg] Anamaria Casas MA [facility] 12/17/2018 16:08:42 Date Recorded Systolic blood pressure Diastolic blood pressure Provider Name and Address Organization Details Last Updated DateTime 11/23/2020 150 mm[Hg] 82 mm[Hg] Gillian Maldonado MA [facility] 11/23/2020 10:08:56 Social History Question Answer Notes LastModified by Organizat ion Details LastModified Time Tobacco Smoking Status Former Smoker quit 2000 CHANEL Hernandez, [facility] 02/20/2017 11:39:41 What Is Your Level Of Alcohol Consumption? None [email or web address] Information not available 11/23/2020 What Was The Date Of Your Most Recent Tobacco Screening? 09/23/2018 Information not available 12/17/2018 How Much Tobacco Do You Smoke? 0.5 PPD Information not available 02/20/2017 How Many Years Have You Smoked Tobacco? 12 Information not available 02/20/2017 Sex: Unknown Functional Status None recorded. Mental Status None recorded. Family History Relationship Description Onset Age of this Age Resolved Age Notes LastModified by Organization Details LastModified Time Father Alcohol abuse [email or web address] Not available 2016 11:39:56 Father Diabetes mellitus thulsema Not available 2016 11:40:26 Father Hypertensive disorder thulsema Not available 2016 11:40:38 Father Hypercholest erolemia thulsema Not available 2016 11:40:49 Father Malignant tumor of prostate thulsema Not available 2016 11:40:57 Mother Hypertensive disorder thulsema Not available 2016 11:40:39 Mother Hypercholest erolemia thulsema Not available 2016 11:40:49 Medical History Condition Response Coronary Artery Disease N Other N High Blood Pressure N Atrial Fibrillation N Kidney or Bladder Problems N Thyroid Problems N GI Problems N Depression N COPD N Blood Clots N Skin Problems N Anemia N Heart Attack ([place]) N Anxiety Disorder N Diabetes N Muscle, Joint, or Bone Problems N Seizures/Epilepsy N Acid Reflux (GERD) N Cancer Y Stroke N Asthma N Allergies N High Cholesterol N Hepatitis N Liver Disease N Headaches N Osteoporosis N Heart Failure N Immunizations Vaccine Type Date Status Note Provider Nam e and Address Organization Details Recorded Time Influenza, split virus, quadrivalent, preservative 7 completed Not Available [facility] 06/12/2019 02:34:20 Influenza, split virus, quadrivalent, PF 9 completed Not Available [facility] 06/12/2019 02:37:30 Influenza, split virus, quadrivalent, preservative 0 completed Mehnaz Kay [place], [place] [facility] 02/22/2020 15:29:16 Influenza, split virus, quadrivalent, PF 3 completed ABRIL Curiel [place], [place] [facility] 05/12/2023 11:21:08 COVID-19, mRNA, LNP-S, PF, 50 mcg/0.5 mL 3 completed Mayela Woods, A[place], [place] [facility] 05/12/2023 11:21:37 Past Encounters Encounter ID Performer Location Encounter Start Date Encounter Closed Date Diagnosis/Indication Diagnosis SNOMED-CT Code Diagnosis ICD10 Code Diagnosis Note [id number] KAYLEE Barraza NP [facility] [address] [place] [address] 02/20/2017 11:06:20 02/21/2017 11:56:01 Family history of diabetes mellitus 570803452 Z83.3 Overweight 291216715 E66 .3 Active or passive immunization 184847295 Z23 History of non-Hodgkins lymphoma 540367852 Z85.72 Fatigue 44436180 R53.83 Screening for malignant neoplasm of prostate 891036846 Z12.5 HIV screening 521557813 Z11.4 Increased blood pressure 49850817 R03.0 will recheck in 1 month. [id number] Ramya Rawls CMA [facility] [address] [place] [address] 02/21/2017 09:57:19 02/24/2017 17:46:18 Family history of diabetes mellitus 891210650 Z83.3 Overweight 164349502 E66 .3 History of non-Hodgkins lymphoma 531515262 Z85.72 Fatigue 12335647 R53.83 Screening for malignant neoplasm of prostate 614478974 Z12.5 HIV screening 985297165 Z11.4 [id number] KAYLEE Barraza NP [facility] [address] [place] [address] 06/27/2017 14:47:57 06/30/2017 10:32:21 Acute pharyngitis 851498234 J02.9 Start oral antibiotic . Ibuprofen/ tylenol prn otc. Saline gargles. Rest. Increase fluids. F/u prn [id number] Christine Banks MA [facility] [address] [place] [address] 07/08/2018 12:07:08 07/09/2018 09:15:09 Active or passive immunization 966731953 Z23 [id number] Toshia Mitchell MD [facility] [address] [place] [address] 09/23/2018 15:44:56 09/28/2018 09:22:10 Memory lapses 690024502 R41.3 History of head injury 101625918 Z87.828 Peripheral nerve disease 694258650 G64 Adult heal th examination 045963162 Z00.00 [id number] Mehnaz Kay MA [facility] [address] [place] [address] 09/25/2018 15:54:33 10/01/2018 12:51:30 [id number] Toshia Mitchell MD [facility] [address] [place] [address] 12/17/2018 14:55:02 12/21/2018 16:25:13 Chest pain 95488626 R07.9 discussed angina vs reflux pain; suspect acid reflux is present. Call 911 if you have chest pain unrelieved by 2 doses of nitrolingu al spray. [id number] BRYAN BLACK [facility] [address] [place] [address] 10/20/2019 12:47:33 10/21/2019 09:41:43 Gastroesophageal reflux disease without esophagitis 180983954 K21.9 patient presents for medication refill. He states it has significan tly reduced his acid reflux. [id number] Mehnaz Kay MA [facility] [address] [place] [address] 02/22/2020 15:27:19 02/23/2020 11:56:16 Administration of influenza vaccine 01327344 Z23 [id number] Toshia Mitchell MD [facility] [address] [place] [address] 11/23/2020 08:04:24 11/28/2020 17:03:15 Dental abscess 154069244 K04.7 [id number] Vonda Duval MD [facility] [address] [place] [address] 05/09/2023 14:42:49 05/14/2023 10:04:26 Active or passive immunization 681852663 Z23 Health Concerns Section Related Observation LastModified by Organization Detai ls LastModified Time None Recorded Concern Status LastModified by Organization Details LastModified Time None Recorded Advance Directives Directive None Recorded Payers Encounter Date Sequence Insurance Name Policy Number Policy Leggett Covered Member ID Leggett Member ID Guarantor Name 12/17/2018 1 MEDICARE B: [employer] - RAILROAD MEDICARE Nataliomichael Portillo [id number] Nataliomichael Portillo 12/17/2018 1 [place]ARE OR MEDICARE REPLACEMENT PRIMARY) Natalio Portillo [id number] Natalio Portillo 10/20/2019 1 MEDICARE B: [employer] - RAILROAD MEDICARE Natalio Portillo [id number] Natalio Portillo 10/20/2019 1 [place] OR [place]IC[place] REPLACEMENT PRIMARY) Natalio Portillo [id number] Natalio Portillo 02/22/2020 1 [place] OR MEDIC[place] REPLACEMENT PRIMARY) Natalio Portillo [id number] Natalio Portillo 02/22/2020 1 [facility] (MEDICARE REPLACEMENT/AD VANTAGE - PPO) [id number] Natalio Portillo [id number] Natalio Portillo 11/23/2020 1 [place] WHEN [place] OR MEDICARE REPLACEMENT PRIMARY) Natalio Portillo [id number] Natalio Portillo 11/23/2020 1 [employer] - DUAL ELIGIBLE (MEDICARE REPLACEMENT/AD VANTAGE - HMO) Natalio Portillo [id number] Natalio Portillo 05/09/2023 1 [place] OR MEDICARE REPLACEMENT PRIMARY) Natalio Portillo [id number] Natalio Portillo 05/09/2023 1 [employer] - DUAL ELIGIBLE (MEDICARE REPLACEMENT/AD VANTAGE - HMO) Natalio Portillo [id number] Natalio Portillo Notes Date Note Type Note Provider Name and Address Organization Details Recorded Time 12/17/2018 text/html Angina/Chest PainReported bypatient.Location :midsternal;radiat es to the left arm Quality:pressure;s queezing;tightness ;stabbing Severity:moderate Duration:lasts seconds Context:exertional ;occurs with emotional stress;occurs with physical stress Alleviating Factors:relieved with NTG; relieved with rest; relieved with antacid; relieved with sitting Aggravating Factors:worse with activity;worse with stress/emotional upset;worse with bending forward Associated Symptoms:no associated palpitations; no associated dizziness;chest discomfort;shortne ss of breath;exertional dyspnea;decrease in exercise capacity;fatigue; no nausea, no vomiting, no diaphoresis or lightheadedness, no blood in the stools. follow up chest pain. patient is not feeling any chest pains as of today. Toshia Mitchell MD Attn: [address] [place], [address], [facility] 12/21/2018 13:38:09 10/20/2019 text/html patient presents for medication refill patient would like refill on omeprazole. states his GERD has improved since being on it. BRYAN BLACK Attn: [address] [place], [address], [facility] 10/20/2019 14:26:27 11/23/2020 text/html Patient has pain in the left mandible. There is a mucous retention cyst in the left maxilla which is asymptomatic. Patient was treated with augmentin at the [facility] emergency department but continues to have pain; will switch to clindamycin tid with meals, and encourage him to eat yogurt on a daily basis to avoid diarrhea. Patient was advised to also see a dentist as soon as possible, such as at the dental school in [place]. Toshia Mitchell MD Attn: [address] [place], [address], [facility] 11/27/2020 23:18:33
--- OUTSIDE RECORDS SUMMARY | 2024-06-26 13:12 | XMS_ITS | Clinical Summary ---
Author Organization [facility] Address [address] [place] [address]. [place], [place] [id number] [place] [address] Care Team Providers Care Helper/Driver Name Role Phone Unavailable Primary Care Provider Unavailabl e Social History Tobacco Use Types Packs/Day Years Used Date Smoking Tobacco: Never Assessed Sex and Gender Information Value Date Recorded Sex Assigned at Not on file Legal Sex Male 6:02 PM CDT Gender Identity Not on file Sexual Orientation Not on file Plan of Treatment Health Maintenance Due Date Last Done Comments Colorectal Cancer Screening Colonoscopy (10 Years) 1972 Annual Physical 1975 Hepatitis C 1990 DTaP, Tdap and Td Vaccines ( 1 - Tdap) 1991 Hepatitis B Vaccines (1 of 3 - 19+ 3-dose series) 1991 Zoster Vaccines (1 of 2) 2022 COVID-19 Vaccine ( - 2023-2 5 season) 2024 Influenza Adult (#1) 2024 Meningococcal B Vaccine Aged Out No l onger eligible based on patient's age to complete this topic Meningococcal Vaccine Aged Out No frederick lawrence eligible based on patient's age to complete this topic Pneumococcal Vaccine: Pediat rics (0 to 5 Years) and At-Risk Patients (6 to 64 Years) Aged Out No longer eligible b ased on patient's age to complete this topic RSV Immunizations Under 20 Months Aged Out No longer eligible based on patient's age to complete this topic
[2024-06-26 13:27] VITALS: BP 120/81; PULSE 75; RESP 16; TEMP 36.6; O2SAT 98
[2024-06-26 14:39] VITALS: BP 123/83; PULSE 75; RESP 16; TEMP 36.7; O2SAT 98
[2024-06-26 15:18] VITALS: BP 127/93; PULSE 78; RESP 16; TEMP 36.5; O2SAT 98
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
--- OUTSIDE RECORDS SUMMARY | 2024-06-26 15:25 | XMS_ITS | Clinical Summary ---
Author Organization [facility] Address [address] [place] [address]. [place], [place] [address] [place] [address] Care Team Providers Care Milk Tester Name Role Phone Unavailable Primary Care Provider [...]
--- OUTSIDE RECORDS SUMMARY | 2024-06-26 15:25 | XMS_ITS | Continuity of Care Document ---
Author Organization [facility] Address [address] [place] [address] Phone Care Team Providers Care Revolving Inventory Clerk Name Role Phone Piero KRAMER, Eliezer Unavailable Unavailable Advance Directives Directive Yes / No Effective Date File Name No Information Encounters Encounter Description Practice Location Reason(s) For Visit Diagnoses Date Provider Providers Copied on Encounter [employer] [facility], [address], [place], [place], [address], [place] tel:[phone] [facility] Piero Martins. [address] , [place], [place], [address], [place]. tel:[phone] Family History Family Member Type Diagnosis Age At Onset No Information Payers Payer name Insurance type Covered democrat ID Authoriza tion(s) No Information Social History [...]
[2024-06-26] MEDS: fentaNYL CITRATE INJ (*CRX) 100 MCG/2 ML VIAL 50 MCG IV PUSH (15:52)
[2024-06-26] MEDS: ONDANSETRON INJ 4 MG/2 ML VIAL IV PUSH (15:53)
[2024-06-26 16:06] LABS: Basophils Absolute Auto 0.1 K/mm3 (0.0-0.1); Basophils Percent Auto 0.7 % (0.2-1.2); Eosinophils Absolute Auto 0.1 K/mm3 (0-0.3); Eosinophils Percent Auto 1.2 % (0-4.4); Hematocrit 43.3 % (42.0-52.0); Hemoglobin 15.3 g/dL (14.0-18.0); Immature Granulocyte Absolute 0.03 K/mm3 (0.00-0.031); Immature Granulocyte Percent A 0.4 % (0-0.5); Lymphocytes Absolute Auto 1.74 K/mm3 (0.9-3.2); Lymphocytes Percent Auto 22.7 % (18.3-44.2); Mean Corpuscular HGB Conc 35.3 g/dl (32-36); Mean Corpuscular Hemoglobin 29.5 pg (26-34); Mean Corpuscular Volume 83.4 fl (80-100); Mean Platelet Volume 9.2 fl (7.4-10.4); Monocytes Absolute Auto 0.5 K/mm3 (0.1-0.6); Monocytes Percent Auto 6.7 % (2.6-8.5); Neutrophils Absolute Auto 5.2 K/mm3 (1.3-6.7); Neutrophils Percent Auto 68.3 % (45.5-73.1); Platelet Count Result 185 k/mm3 (150-375); Red Blood Count 5.19 M/mm3 (4.6-6.20); Red Cell Distribution Width 14.6 % (11.5-14.5); White Blood Count 7.7 K/mm3 (4.5-10.0)
--- NOTE | 2024-06-26 16:13 | ECG_ITS ---
Test Date: 2024-06-26 17:35:30 Measurements Intervals [place] Rate: 66 P: 70 [place]: 197 QRS: -13 QRSD: 88 T: -45 QT: 434 QTc: 455 Interpretive Statements SINUS RHYTHM WITH OCCASIONAL SUPRAVENTRICULAR PREMATURE COMPLEXES NONSPECIFIC T-WAVE ABNORMALITY- INF/LAT LEADS BORDERLINE ECG No previous ECG available for comparison Electronically Signed On 06-26-2024 18:21:21 THREAD MARKER by Renard Butler D.O.
[2024-06-26 16:19] LABS: Alanine Aminotransferase 29 U/L (6-50); Albumin Level 4.4 g/dL (3.5-5.1); Alkaline Phosphatase 104 U/L (38-126); Anion Gap 13 mmol/L (4-12); Aspartate Amino Transferase 30 U/L (17-59); Bilirubin,Total 1.5 mg/dL (0.2-1.3); Blood Urea Nitrogen 15 mg/dL (9-20); Calcium 9.3 mg/dL (8.4-10.2); Carbon Dioxide 23 mmol/L (22-30); Chloride 102 mmol/L (98-107); Estimated CRCL calculation 118 ml/min; Estimated Glomerular Filt Rate > 60; Glucose 89 mg/dL (65-110); Potassium 4.1 mmol/L (3.4-5.0); Sodium 138 mmol/L (137-145)
[2024-06-26 17:26] VITALS: BP 128/77; PULSE 66; RESP 16; O2SAT 99
[2024-06-26 17:54] VITALS: BP 120/90; PULSE 80; RESP 16; TEMP 36.6; O2SAT 97
== END 2024-06-26 17:59 | disposition home or self-care (01) ==
PROVIDERS: Emergency Provider Emergency Medicine
DX: M79.10 Myalgia, unspecified site (principal); V49.9XXA Car occupant (driver) (passenger) injured in unspecified traffic accident, initial encounter; W22.10XA Striking against or struck by unspecified automobile airbag, initial encounter; Z85.72 Personal history of non-Hodgkin lymphomas; Z87.891 Personal history of nicotine dependence
CPT/HCPCS: 36415; 70450; 71260; 72125; 74177; 80053; 85025; 93005; 96374; 96375; 99284; J2405; J3010; Q9967

== ENCOUNTER 2024-08-07 04:15 | Inpatient (IN) | payer MEDICARE, SELFPAY ==
[2024-08-07] VITALS (14 sets, daily range): BP systolic 113–147; BP diastolic 66–98; PULSE 73–87; RESP 16–24; TEMP 36.1–36.9; O2SAT 89–98; BMI 24.0
--- NOTE | ~2024-08-07 | CT_ITS ---
Clinical Indication: Shortness of breath CT Scan of the Chest with Contrast: Technique: Contiguous sections were acquired throughout the chest after intravenous administration of 100 cc of Omnipaque 350. Dose reduction technique was used on this scan by utilizing automated expos ure control and iterative reconstruction technique. The dose-length product (DLP) was 270.45 mGy-cm. COMPARISON: 06/26/2024 Findings: There is no evidence of any significant mediastinal, hilar or axillary lymphadenopathy. There is no f illing defect in the pulmonary arterial tree to suggest pulmonary embolus. There is no evidence of ao rtic dissection or aneurysm. No pericardial effusion. Small bilateral pleural effusions are present. There is patchy groundglass pulmonary disease, worse in the lower lobes, with more focal areas of byron und glass opacity upper lobes. Possible minimal interstitial thickening in the lungs. Images through the upper abdomen reveal no abnormalities. Impression: No evidence of pulmonary embolus, aortic dissection, or aortic aneurysm. Small bilateral pleural effusions with mild patchy alveolar and interstitial pulmonary edema pattern. Correlate clinically for infection, which is felt to be somewhat less likely. Reviewed, dictated and finalized at [facility]. Impression: No evidence of pulmonary embolus, aortic dissection, or aortic aneurysm. Small bilateral pleural effusions with mild patchy alveolar and interstitial pu lmonary edema pattern. Correlate clinically for infection, which is felt to be somewhat less likely.
--- NOTE | ~2024-08-07 | XR_ITS ---
Clinical Indication: Chest pain PA and lateral views of the chest: Comparison: 11/17/2019 Findings: There is mild patchy, hazy airspace disease bilaterally. No pleural effusion or pneumothora x.. Cardiomediastinal silhouette is within normal limits. Bones and soft tissues are unremarkable. Impression: Mild patchy bilateral airspace disease. Correlate for mild pulmonary edema versus infection. Reviewed, dictated and finalized at [facility]. Impression: Mild patchy bilateral airspace disease. Correlate for mild pulmonary edema vers us infection.
--- NOTE | 2024-08-07 04:16 | ECG_ITS ---
Test Date: 2024-08-07 04:24:59 Measurements Intervals [place] Rate: 87 P: 69 [place]: 191 QRS: 32 QRSD: 93 T: 61 QT: 378 QTc: 455 Interpretive Statements SINUS RHYTHM NONSPECIFIC T-WAVE ABNORMALITY Electronically Signed On 08-08-2024 13:55:10 CDT by Tejas Zimmerman D.O
--- OUTSIDE RECORDS SUMMARY | 2024-08-07 04:17 | XMS_ITS | Clinical Summary ---
Author Organization [facility] Address [address] [place] [address] Care Team Providers Care Housekeeping Staff Name Role Phone Unavailable Primary Care Provider [...]
--- OUTSIDE RECORDS SUMMARY | 2024-08-07 04:17 | XMS_ITS | Data Portability ---
Author Organization Katya SANTANAokduy Metzger Address [address] [facility] [place] [address] Assessment Encounter Date Assessment Date Assessment LastModified by Organization Details LastModified Time 11/23/2020 11/23/2020 referred to dental clinic at the [facility]. Encouraged to get the coronavirus vaccines. [email or web address] Not available 11/23/2020 10:52:42 Plan of Treatment Reminders Order Date Submit Date Provider Last Modified By Organization Details Last Modified Time Details Appointments None recorded. Lab CMP, serum or plasma 2018 019 [facility], [address] [place] [address], [address], [place], [address], 9 17:09:06 Referral None recorded. Procedures None recorded. Surgeries None recorded. Imaging None recorded. Medication Orders clindamyc in HCl 300 mg capsule 2020 021 [email or web address] [facility], [address] [place], [place], [id number], 1 23:05:26 omeprazol e magnesium 20 mg capsule,d elayed release 2019 020 [email or web address] [facility] #[id number], [address], [place], [place], [id number], 0 10:07:36 omeprazol e 20 mg capsule,d elayed release 2018 019 [facility] #21932, [address], [place], [id number], 9 17:09:03 Nitroling ual 400 mcg/spray 2018 019 [facility] #68212, [address], [place], [place], [id number], 10:04:41 Patient TargetsNo targets recorded. Patient Instructions Encounter Date Encounter Id Patient Instructions Last Modified By Organization Details Last Modified Time 12/17/2018 [id number] chest pain: care instructions [email or web address] Not available 12/17/2018 17:08:58 10/20/2019 [id number] gastroesophageal reflux disease (GERD): care instructions [email or web address] Not available 10/20/2019 14:26:10 11/23/2020 [id number] abscessed tooth: care instructions [email or web address] Not available 11/23/2020 10:44:53 Reason for Referral None Reported. Results Created Date Observation Date Name Description Value Unit Range Abnormal Flag Note LastModifiedBy Organization Detail LastModifiedTime 01/28/2001/27/2019 MRI, brain + brain stem, w/o contr ast No observ ation record ed. [facility] (Imaging) [address] [place] [address], [address], 02/03/2019 13:46:54 08/04/19 20 08/04/2019 XR, foot, 3 or more view No observ ation record ed. [address] [facility], [place], [address], 08/05/2019 17:39:07 11/17/19 20 11/17/2019 XR, chest , 2 view No observ ation record ed. [address], [place], [address], 11/18/2019 11:06:00 11/19/19 21 11/18/2020 CT, neck, soft tissu e, w/o contr ast No observ ation record ed. [address], [place], [address], 11/21/2020 17:40:26 Result Notes None recorded. Problems No Known Problems Procedures Surgical History None recorded. Imaging Results Imaging Date Name Status LastModified by Organiz ation Details LastModified Time 01/27/2019 MRI, brain + brain stem, w/o contrast completed [facility] (Im[facility]) [address] [place] [address] [address] [facility], [place], [address], 02/03/2019 13:46:54 08/04/2019 XR, foot, 3 or more view completed [address], [address], 08/05/2019 17:39:07 11/17/2019 XR, chest, 2 view completed [address], [address], 11/18/2019 11:06:00 11/18/2020 CT, neck, soft tissue, w/o contrast completed [address], [address], 11/21/2020 17:40:26 Procedure Notes None recorded. Medical [...] Not Available Vitals Date Recorded Body height Body mass index (BMI) Body weight Oxygen saturation Oxygen saturation in Arterial blood by Pulse oximetry Heart rate Body temperature Systolic blood pressure Diastolic blood pressure Provider Name and Address Organization Details Last Updated DateTime 9 177.8 cm 28.7 kg/m2 18129.4 7 g 996 % 996 % 88 /min 98.4 [degF] 122 mm[Hg] 86 mm[Hg] Anamaria Casas [place] [facility] 9 16:08:42 Date Recorded Body height Body mass index (BMI) Body weight Oxygen saturation Oxygen saturation in Arterial blood by Pulse oximetry Heart rate Systolic blood pressure Diastolic blood pressure Provider Name and Address Organization Details Last Updated DateTime 1 177.8 cm 28.7 kg/m2 88253.4 7 g 97 % 97 % 71 /min 150 mm[Hg] 82 mm[Hg] Gillian Maldonado MA [facility] 1 10:08:56 Social History Question Answer Notes LastModified by Organizat ion Details LastModified Time Tobacco Smoking Status Former Smoker quit 2000 Ramya Rawls CMA null, [facility] 02/20/2017 11:39:41 What Is Your Level Of [...] Response Coronary Artery Disease N Other N Atrial Fibrillation N High Blood Pressure N Thyroid Problems N Kidney or Bladder Problems N Depression N COPD N Blood Clots N GI Problems N Skin Problems N Anemia N Heart Attack ([place]) N Diabetes N Anxiety Disorder N Muscle, Joint, or Bone Problems N Seizures/Epilepsy N Acid Reflux (GERD) N Cancer Y Stroke N Allergies N Asthma N High Cholesterol N Hepatitis N Liver Disease N Headaches N Osteoporosis N Heart Failure N Immunizations Vaccine Type Date Status Note Provider Nam e and Address Organization Details Recorded Time Influenza, split virus, quadrivalent, preservative 7 completed Not Available [facility] 06/12/2019 02:34:20 Influenza, split virus, quadrivalent, PF 9 completed Not Available [facility] 06/12/2019 02:37:30 Influenza, split virus, quadrivalent, preservative 0 completed Mehnaz Kay [place] null, [place] [facility] 02/22/2020 15:29:16 Influenza, split virus, quadrivalent, PF 3 completed Mayela Woods R[place], [place] [facility] 05/12/2023 11:21:08 COVID-19, mRNA, LNP-S, PF, 50 mcg/0.5 mL 3 completed Mayela Woods RMA [place], [place] [facility] 05/12/2023 11:21:37 Past Encounters Encounter ID Performer Location Encounter Start Date Encounter Closed Date Diagnosis/Indication Diagnosis SNOMED-CT Code Diagnosis ICD10 Code Diagnosis Note [id number] KAYLEE Barraza NP [facility] [address] [place] [address] 02/20/2017 11:06:20 02/21/2017 11:56:01 Family history of diabetes mellitus 501990620 Z83.3 Overweight 252734894 E66 .3 Active or passive immunization 800927242 Z23 History of non-Hodgkins lymphoma 455754002 Z85.72 Fatigue 91891612 R53.83 Screening for malignant neoplasm of prostate 514536213 Z12.5 HIV screening 969075976 Z11.4 Increased blood pressure 66296239 R03.0 will recheck in 1 month. [id number] Ramya Rawls CMA [facility] [address] [place] [address] 02/21/2017 09:57:19 02/24/2017 17:46:18 Family history of diabetes mellitus 676651992 Z83.3 Overweight 293065639 E66 .3 History of non-Hodgkins lymphoma 314730603 Z85.72 Fatigue 39996352 R53.83 Screening for malignant neoplasm of prostate 351066587 Z12.5 HIV screening 196300579 Z11.4 [id number] KAYLEE Barraza NP [facility] [address] [place] [address] 06/27/2017 14:47:57 06/30/2017 10:32:21 Acute pharyngitis 098869250 J02.9 Start oral antibiotic . Ibuprofen/ tylenol prn otc. Saline gargles. Rest. Increase fluids. F/u prn [id number] Christine Banks MA [facility] [address] [place] [address] 07/08/2018 12:07:08 07/09/2018 09:15:09 Active or passive immunization 451629910 Z23 [id number] Toshia Mitchell MD [facility] [address] [place] [address] 09/23/2018 15:44:56 09/28/2018 09:22:10 Memory lapses 420042721 R41.3 History of head injury 812605204 Z87.828 Peripheral nerve disease 032813592 G64 Adult heal th examination 443026173 Z00.00 [id number] Mehnaz Kay MA [facility] [address] [place] [address] 09/25/2018 15:54:33 10/01/2018 12:51:30 [id number] Toshia Mitchell MD [facility] [address] [place] [address] 12/17/2018 14:55:02 12/21/2018 16:25:13 Chest pain 16858774 R07.9 discussed angina vs reflux pain; suspect acid reflux is present. Call 911 if you have chest pain unrelieved by 2 doses of nitrolingu al spray. [id number] BRYAN BLACK [facility] [address] [place] [address] 10/20/2019 12:47:33 10/21/2019 09:41:43 Gastroesophageal reflux disease without esophagitis 719865803 K21.9 patient presents for medication refill. He states it has significan tly reduced his acid reflux. [id number] Mehnaz Kay MA [facility] [address] [place] [address] 02/22/2020 15:27:19 02/23/2020 11:56:16 Administration of influenza vaccine 10459884 Z23 [id number] Toshia Mitchell MD [facility] [address] [place] [address] 11/23/2020 08:04:24 11/28/2020 17:03:15 Dental abscess 599703139 K04.7 [id number] Vonda Duval MD [facility] [address] [place] [address] 05/09/2023 14:42:49 05/14/2023 10:04:26 Active or passive immunization 325447584 Z23 Health Concerns Section Related Observation LastModified by Organization Detai ls LastModified Time None Recorded Concern Status LastModified by Organization Details LastModified Time None Recorded Advance Directives Directive None Recorded Payers Encounter Date Sequence Insurance Name Policy Number Policy Leggett Covered Member ID Leggett Member ID Guarantor Name 12/17/2018 1 MEDICARE B: [employer] - RAILROAD MEDICARE Nataliomichael Portillo [id number] Natalio Portillo 12/17/2018 1 [place] WHEN MEDICARE OR MEDICARE REPLACEMENT PRIMARY) Natalio Portillo [id number] Natalio Portillo 10/20/2019 1 MEDICARE B: [employer] - RAILROAD MEDICARE Natalio Portillo [id number] Natalio Portillo 10/20/2019 1 [place]ARE OR [place]ICARE REPLACEMENT PRIMARY) Natalio Portillo [id number] Natalio Portillo 02/22/2020 1 [place] OR MEDICARE REPLACEMENT PRIMARY) Natalio Portillo [id number] Natalio Portillo 02/22/2020 1 [facility] (MEDICARE REPLACEMENT/AD VANTAGE - PPO) [id number] Natalio Portillo [id number] Natalio Portillo 11/23/2020 1 [place] OR MEDICARE REPLACEMENT PRIMARY) Natalio Portillo [id number] Natalio Portillo 11/23/2020 1 [employer] - DUAL ELIGIBLE (MEDICARE REPLACEMENT/AD VANTAGE - HMO) Natalio Portillo [id number] Natalio Portillo 05/09/2023 1 [place] WHEN [place] OR MEDICARE REPLACEMENT PRIMARY) Natalio Portillo [id number] Natalio Portillo 05/09/2023 1 [employer] - DUAL ELIGIBLE (MEDICARE REPLACEMENT/AD VANTAGE - HMO) Natalio Portillo [id number] Natalio Portillo Notes Date Note Type Note [...] today. Toshia Mitchell MD Attn: [address]ing[address] [place], [address], [facility] 12/21/2018 13:38:09 10/20/2019 text/html patient presents for medication refill patient would like refill on omeprazole. states his GERD has improved since being on it. BRYAN BLACK Attn: [address]ing[address] [place], [address], [facility] 10/20/2019 14:26:27 11/23/2020 text/html Patient has pain in the left mandible. There is a mucous retention cyst in the left maxilla which is asymptomatic. Patient was treated with augmentin at the [facility] emergency department but continues to have pain; will switch to clindamycin tid with meals, and encourage him to eat yogurt on a daily basis to avoid diarrhea. Patient was advised to also see a dentist as soon as possible, such as at the dental school in [place]. Toshia Mitchell MD Attn: [address]ing[address] [facility], [place], [address], [facility] 11/27/2020 23:18:33
[2024-08-07 04:53] LABS: Basophils Absolute Auto 0.1 K/mm3 (0.0-0.1); Basophils Percent Auto 0.9 % (0.2-1.2); Eosinophils Absolute Auto 0.4 K/mm3 (0-0.3); Eosinophils Percent Auto 5.8 % (0-4.4); Hematocrit 41.5 % (42.0-52.0); Hemoglobin 14.3 g/dL (14.0-18.0); Immature Granulocyte Absolute 0.01 K/mm3 (0.00-0.031); Immature Granulocyte Percent A 0.1 % (0-0.5); Lymphocytes Absolute Auto 3.82 K/mm3 (0.9-3.2); Lymphocytes Percent Auto 51.5 % (18.3-44.2); Mean Corpuscular HGB Conc 34.5 g/dl (32-36); Mean Corpuscular Hemoglobin 29.1 pg (26-34); Mean Corpuscular Volume 84.3 fl (80-100); Mean Platelet Volume 9.1 fl (7.4-10.4); Monocytes Absolute Auto 0.4 K/mm3 (0.1-0.6); Monocytes Percent Auto 5.5 % (2.6-8.5); Neutrophils Absolute Auto 2.7 K/mm3 (1.3-6.7); Neutrophils Percent Auto 36.2 % (45.5-73.1); Platelet Count Result 197 k/mm3 (150-375); Red Blood Count 4.92 M/mm3 (4.6-6.20); Red Cell Distribution Width 15.3 % (11.5-14.5); White Blood Count 7.4 K/mm3 (4.5-10.0)
[2024-08-07 05:02] LABS: INR 1.1; Prothrombin Time 14.5 Seconds (11.1-14.7)
[2024-08-07 05:03] LABS: Partial Thromboplastin Time 27.3 Seconds (22.3-36.8)
[2024-08-07 05:05] LABS: Alanine Aminotransferase 40 U/L (6-50); Albumin Level 4.2 g/dL (3.5-5.1); Alkaline Phosphatase 102 U/L (38-126); Anion Gap 10 mmol/L (4-12); Aspartate Amino Transferase 36 U/L (17-59); Bilirubin,Total 0.7 mg/dL (0.2-1.3); Blood Urea Nitrogen 19 mg/dL (9-20); Calcium 8.9 mg/dL (8.4-10.2); Carbon Dioxide 21 mmol/L (22-30); Chloride 109 mmol/L (98-107); Estimated CRCL calculation 115 ml/min; Estimated Glomerular Filt Rate > 60; Glucose 99 mg/dL (65-110); Lipase 70 U/L (23-300); Potassium 3.4 mmol/L (3.4-5.0); Sodium 140 mmol/L (137-145)
[2024-08-07 05:16] LABS: Troponin I 0.023 ng/mL (0.000-0.034)
--- OUTSIDE RECORDS SUMMARY | 2024-08-07 07:35 | XMS_ITS | Clinical Summary ---
Author Organization [facility] Address [address] [place] [id number] Care Team Providers Care Tenter Feeder Name Role Phone Unavailable Primary Care Provider [...]
[2024-08-07] MEDS: ASPIRIN 81 MG CHEWABLE TABLET 324 MG PO (08:07)
--- NOTE | 2024-08-07 08:23 | ED.GENADULT ---
HPI - General Adult General Chief complaint: Chest Pain Stated complaint: CP/SOB Time Seen by Provider: 08/07/24 07:18 History of Present Illness HPI narrative: 54-year-old male who presented to the emergency department for evaluation for cough congestion shortness of breath and chest pain. Patient states symptoms started this morning. Patient does have prior history of non-Hodgkin's lymphoma Related Data Home Medications ?Medication ?Instructions ?Recorded ?Confirmed ?Last Taken ?Type ibuprofen 100 mg tablet 200 mg PO ONCE PRN pain 08/07/24 08/07/24 Unknown History Allergies Allergy/AdvReac Type Severity Reaction Status Date / Time No Known Allergies Allergy Verified 08/07/24 04:15 Review of Systems Review of Systems: All systems reviewed & are unremarkable except as noted in HPI and below PMFSH Past Medical History Medical History History of radiation therapy History of chemotherapy Non-Hodgkin's lymphoma Chronic back pain Seizure Cataracts, bilateral Surgical History Surgical History History of spinal fusion History of neck surgery History of cataract surgery Social History Social History Smoking packs per day: 2 Smoking cigarettes per day: 40.0 Years smoked: 10 Smoking pack-years: 20.00 Smoking status: Former smoker Tobacco type: cigarettes Alcohol intake: current Drinks per week: 1 Substance use: never Substance use type: does not use Do You Feel Safe in your Home?: Yes Lack of Transportation: No Lack of Food: Never True Current Housing: I Have Housing Concerned About Future Housing: No Difficulty Paying Gas/Electric Bills: YES Difficulty Paying for Meds: No Currently Unemployed: No Education: Decline to Answer Difficulty w/ Childcare or Family Care: No Gender identity (if verbalized by the patient): Male Sexual Orientation (if Verbalized by the Patient): Straight or Heterosexual Spiritual care concerns: No Exam Narrative: APPEARANCE: Well appearing, no pain, no distress, well-nourished. HEAD: normocephalic, atraumatic. EYES: PERRLA/EOMI, conjunctivae clear. NOSE: Normal no drainage EARS:TMS clear with good light reflex. THROAT: Pharynx clear, no exudate. NECK: Supple. No adenopathy, no masses. RESPIRATORY: Airway patent, respirations nonlabored. Clear to auscultation bilaterally, no rales, rhonchi, wheezing. CARDIOVASCULAR: Regular rate and rhythm without murmurs rubs or gallops. ABDOMINAL: Soft, nontender, nondistended, normal bowel sounds MUSCULOSKELETAL: Left lower extremity tenderness to palpate NEURO: Alert. Cranial nerves II through XII intact. Grossly intact SKIN: Warm, dry. Normal Color Course Vital Signs Vital signs: Vital Signs Temperature 97.0 F L 08/07/24 04:17 Pulse Rate 87 08/07/24 04:17 Respiratory Rate 19 08/07/24 04:17 Blood Pressure 147/97 H 08/07/24 04:17 Pulse Oximetry 93 08/07/24 04:17 Oxygen Delivery Room Air 08/07/24 04:17 Temperature 98.5 F 08/07/24 15:43 Pulse Rate 83 08/07/24 15:43 Respiratory Rate 18 08/07/24 15:43 Blood Pressure 136/81 08/07/24 15:43 Pulse Oximetry 98 08/07/24 15:43 Oxygen Delivery Room Air 08/07/24 15:39 Oxygen Flow Rate 2 08/07/24 08:07 Medical Decision Making MDM Narrative Medical decision making narrative: 54-year-old male presents to the emergency department for evaluation for shortness of breath with cough congestion and chest pain. CTA was negative for pulmonary embolism. Patient is currently afebrile with no leukocytosis hemoglobin of 14.3, no significant abnormalities on the patient's CMP, patient's proBNP was 1530. Imaging was more concerning for pulmonary edema over infection. This would be new onset CHF. Patient was treated with Lasix in the emergency department. Case discussed with hospitalist patient was accepted to the IMU. Patient and family were updated on the results of the workup and plan for admission. All questions concerns were addressed patient was well-appearing at time of admission Differential Diagnosis Differential Diagnosis: COVID, RSV, influenza, pneumonia, pulmonary edema, new onset CHF, ACS Vital Signs Vital Signs: Vital Signs Temperature 97.0 F L 08/07/24 04:17 Pulse Rate 87 08/07/24 04:17 Respiratory Rate 19 08/07/24 04:17 Blood Pressure 147/97 H 08/07/24 04:17 Pulse Oximetry 93 08/07/24 04:17 Oxygen Delivery Room Air 08/07/24 04:17 Temperature 98.5 F 08/07/24 15:43 Pulse Rate 83 08/07/24 15:43 Respiratory Rate 18 08/07/24 15:43 Blood Pressure 136/81 08/07/24 15:43 Pulse Oximetry 98 08/07/24 15:43 Oxygen Delivery Room Air 08/07/24 15:39 Oxygen Flow Rate 2 08/07/24 08:07 Lab Data Lab results reviewed: Yes I reviewed the patient's lab results. 08/07/24 04:29 08/07/24 04:29 Labs: Lab Results 08/07/24 08/07/24 08/07/24 Range/Units 04: 08:23 12:24 WBC 7.4 (4.5-10.0) K/mm3 RBC 4.92 (4.6-6.20) M/mm3 Hgb 14.3 (14.0-18.0) g/dL Hct 41.5 L (42.0-52.0) % MCV 84.3 (80-100) fl MCH 29.1 (26-34) pg MCHC 34.5 (32-36) g/dl RDW 15.3 H (11.5-14.5) % Plt Count 197 (150-375) k/mm3 MPV 9.1 (7.4-10.4) fl Immature Gran % (Auto) 0.1 (0-0.5) % Neut % (Auto) 36.2 L (45.5-73.1) % Lymph % (Auto) 51.5 H (18.3-44.2) % [place]ne % (Auto) 5.5 (2.6-8.5) % Eos % (Auto) 5.8 H (0-4.4) % Baso % (Auto) 0.9 (0.2-1.2) % Lymph # (Auto) 3.82 H (0.9-3.2) K/mm3 [place]ne # (Auto) 0.4 (0.1-0.6) K/mm3 Eos # (Auto) 0.4 H (0-0.3) K/mm3 Baso # (Auto) 0.1 (0.0-0.1) K/mm3 Abs Immat Gran (auto) 0.01 (0.00-0.031) K/mm3 Absolute Neuts (auto) 2.7 (1.3-6.7) K/mm3 Absolute Nucleated RBC 0.000 (0.0-0.012) K/mm3 Nucleated RBC % 0.0 (0.0-0.2) % PT 14.5 (11.1-14.7) Seconds INR 1.1 APTT 27.3 (22.3-36.8) Seconds Sodium 140 (137-145) mmol/L Potassium 3.4 (3.4-5.0) mmol/L Chloride 109 H (98-107) mmol/L Carbon Dioxide 21 L (22-30) mmol/L Anion Gap 10 (4-12) mmol/L BUN 19 (9-20) mg/dL Creatinine 0.66 L (0.7-1.3) mg/dL Estim Creat Clear Calc 115 ml/min Estimated GFR > 60 (59 - ) Glucose 99 (65-110) mg/dL Calcium 8.9 (8.4-10.2) mg/dL Total Bilirubin 0.7 (0.2-1.3) mg/dL AST 36 (17-59) U/L ALT 40 (6-50) U/L Alkaline Phosphatase 102 (38-126) U/L Troponin I 0.023 0.034 D 0.027 D (0.000-0.034) ng/mL NT-Pro-B Natriuret Pep 1530 H (19.9-100) pg/mL Total Protein 7.0 (6.3-8.2) g/dL Albumin 4.2 (3.5-5.1) g/dL Lipase 70 (23-300) U/L Imaging Data Radiologist's impression: Impressions Chest X-Ray 08/07/24 07:03 Impression: Mild patchy bilateral airspace disease. Correlate for mild pulmonary edema versus infection. Chest CTA 08/07/24 08:54 Impression: No evidence of pulmonary embolus, aortic dissection, or aortic aneurysm. Small bilateral pleural effusions with mild patchy alveolar and interstitial pulmonary edema pattern. Correlate clinically for infection, which is felt to be somewhat less likely. Discharge Plan Discharge Clinical Impression: CHF (congestive heart failure), Exertional dyspnea Patient Disposition: Still a Patient Condition: Serious
--- NOTE | 2024-08-07 08:26 | ECG_ITS ---
Test Date: 2024-08-07 08:56:08 Measurements Intervals [place] Rate: 78 P: 58 CA: 175 QRS: 14 QRSD: 90 T: 33 QT: 396 QTc: 452 Interpretive Statements SINUS RHYTHM POSSIBLE LEFT ATRIAL ENLARGEMENT NONSPECIFIC T-WAVE ABNORMALITY Electronically Signed On 08-08-2024 13:56:21 CDT by Tejas Zimmerman D.O
--- NOTE | 2024-08-07 08:42 | PCRCNOTE ---
Arrived to give breathing tx and Pt was not in the room.
[2024-08-07] MEDS: ALBUTEROL SULFATE NEB 2.5 MG/3 ML INH 5 MG INHALATION (08:46)
[2024-08-07 08:58] LABS: Troponin I 0.034 ng/mL (0.000-0.034)
[2024-08-07 09:19] LABS: NT Pro B Type Natriuretic Pept 1530 pg/mL (19.9-100)
--- NOTE | 2024-08-07 12:25 | ECG_ITS ---
Test Date: 2024-08-07 12:29:35 Measurements Intervals [place] Rate: 73 P: 57 IA: 188 QRS: 12 QRSD: 92 T: -81 QT: 427 QTc: 472 Interpretive Statements SINUS RHYTHM NONSPECIFIC T-WAVE ABNORMALITY Electronically Signed On 08-08-2024 13:58:11 CDT by Tejas Zimmerman D.O
[2024-08-07 12:50] LABS: Troponin I 0.027 ng/mL (0.000-0.034)
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
[2024-08-07] MEDS: FUROSEMIDE INJ 40 MG/4 ML VIAL IV PUSH (13:14)
--- NOTE | 2024-08-07 13:56 | ADMGEN ---
This patient, Natalio Portillo, was admitted to IMU Room 210-01. Patient/family oriented to hospital policies and general routines including ID bracelet, bed and alarms, visiting hours, pain management, procedures, bathroom and other care routines, personal items, smoking policy, room service/diet, and visiting hours. Information on how to activate the Rapid Response Team has been discussed. Patient/Family are encouraged to report perceived risks to care and to ask questions if they do not understand what they are told or what they should do.
[2024-08-07 16:14] LABS: HDL Direct 55 mg/dL; Triglycerides 102 mg/dL (<150)
[2024-08-07 16:25] LABS: LDL Cholesterol Direct 91 mg/dL
[2024-08-07] MEDS: FUROSEMIDE INJ 40 MG/4 ML VIAL 20 MG IV PUSH (17:51)
[2024-08-07] MEDS: ACETAMINOPHEN 325 MG TABLET 650 MG PO (20:53)
[2024-08-08] VITALS (17 sets, daily range): BP systolic 117–133; BP diastolic 69–81; PULSE 61–83; RESP 16–18; TEMP 36.6–36.9; O2SAT 94–99
[2024-08-08 04:28] LABS: Add Urine Microscopic? YES; Appearance Urine Clear (Clear); Bacteria Urine None Seen /hpf; Bilirubin Urine Negative (Negative); Blood Urine Negative (Negative); Color Urine Yellow (Yellow); Glucose Urine UA Negative (Negative); Ketones Urine Negative (Negative); Leukocyte Esterase Ur Negative LEU/UL (Negative); Nitrate Urine Negative (Negative); Non Pathogenic Casts 0-2; Protein Urine Trace mg/dL (Negative); Specific Grav Ur 1.024 (1.001-1.035); Squamous Epithelial Cell Urine None Seen /hpf (Few); pH Urine 5.5 (5.0-9.0)
[2024-08-08 04:30] LABS: Basophils Absolute Auto 0.1 K/mm3 (0.0-0.1); Basophils Percent Auto 1.1 % (0.2-1.2); Eosinophils Absolute Auto 0.4 K/mm3 (0-0.3); Eosinophils Percent Auto 5.5 % (0-4.4); Hematocrit 40.1 % (42.0-52.0); Hemoglobin 14.1 g/dL (14.0-18.0); Immature Granulocyte Absolute 0.02 K/mm3 (0.00-0.031); Immature Granulocyte Percent A 0.3 % (0-0.5); Lymphocytes Percent Auto 48.5 % (18.3-44.2); Mean Corpuscular HGB Conc 35.2 g/dl (32-36); Mean Corpuscular Hemoglobin 29.3 pg (26-34); Mean Corpuscular Volume 83.4 fl (80-100); Mean Platelet Volume 9.2 fl (7.4-10.4); Monocytes Absolute Auto 0.6 K/mm3 (0.1-0.6); Monocytes Percent Auto 8.6 % (2.6-8.5); Neutrophils Absolute Auto 2.4 K/mm3 (1.3-6.7); Platelet Count Result 172 k/mm3 (150-375); Red Blood Count 4.81 M/mm3 (4.6-6.20); Red Cell Distribution Width 15.1 % (11.5-14.5); White Blood Count 6.6 K/mm3 (4.5-10.0)
[2024-08-08 04:44] LABS: Anion Gap 10 mmol/L (4-12); Blood Urea Nitrogen 21 mg/dL (9-20); Carbon Dioxide 29 mmol/L (22-30); Chloride 101 mmol/L (98-107); Cholesterol 164 mg/dL (0-200); Estimated CRCL calculation 104 ml/min; Estimated Glomerular Filt Rate > 60; Glucose 94 mg/dL (65-110); HDL Direct 53 mg/dL; Potassium 3.3 mmol/L (3.4-5.0); Sodium 140 mmol/L (137-145); Triglycerides 69 mg/dL (<150)
[2024-08-08 04:59] LABS: LDL Cholesterol Direct 87 mg/dL
[2024-08-08 05:37] LABS: Free T4 Free Thyroxine Reflex 1.23 ng/dL (0.78-2.19)
[2024-08-08 06:23] LABS: Total Triiodothyronine (T3) 1.59 NG/ML (0.97-1.69)
[2024-08-08 07:32] LABS: Glucose Point of Care 96 mg/dl (65-105)
[2024-08-08] MEDS: FUROSEMIDE INJ 40 MG/4 ML VIAL 20 MG IV PUSH ×2 (09:06→17:00)
[2024-08-08] MEDS: ASPIRIN 81 MG CHEWABLE TABLET PO (09:06)
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
[2024-08-08] MEDS: IBUPROFEN 200 MG TABLET PO (20:18)
[2024-08-08] MEDS: POTASSIUM CHLORIDE 20 MEQ ER TABLET 40 MEQ PO (21:32)
[2024-08-08 23:27] LABS: Anion Gap 9 mmol/L (4-12); Blood Urea Nitrogen 26 mg/dL (9-20); Carbon Dioxide 30 mmol/L (22-30); Chloride 98 mmol/L (98-107); Estimated CRCL calculation 88 ml/min; Estimated Glomerular Filt Rate > 60; Glucose 97 mg/dL (65-110); Potassium 3.5 mmol/L (3.4-5.0); Sodium 137 mmol/L (137-145)
[2024-08-09] VITALS (15 sets, daily range): BP systolic 111–132; BP diastolic 63–86; PULSE 64–95; RESP 16–20; TEMP 36.6–36.9; O2SAT 94–99
--- NOTE | 2024-08-09 | ECHO_ITS ---
Patient Info Name: Natalio Portillo Age: 54 years : 1970 Gender: Male Ht: 70 in Wt: 160 lbs BSA: 1.89 m2 HR: 64 bpm BP: 111 / 63 mmHg Heart Rhythm: Sinus Rhythm Technical Quality: Good Exam Date: 08/09/2024 1:55 PM Exam Location: Echo Lab Patient Status: Outpatient Admit Date: 08/07/2024 Staff Ordering Physician: Kati Coleman APRN Hand Method Lasting Machine Operator: Neetu Garcia RDCS Attending Provider: Shea Young MD Referring Physician: Jared GALINDO; Exam Type: CA echo doppler color flow Study Info Indications - Elevated BNP, Pulmonary edema R06.02 - Shortness of breath Complete two-dimensional, color flow and Doppler transthoracic echocardiogram is performed. Summary 1. Complete two-dimensional, color flow and Doppler transthoracic echocardiogram is performed. 2. The left ventricle is mildly dilated with LVEDD measuring 6.2cm in diameter. The left ventricular systolic function is severely reduced with LVEF visually estimated to be 20-25%. 3. There is no significant valvular disease. 4. IVC is normal size and collapsible. Left Ventricle The left ventricle is mildly dilated with LVEDD measuring 6.2cm in diameter. The left ventricular systolic function is severely reduced with LVEF visually estimated to be 20-25%. Right Ventricle The right ventricle is normal in size and systolic function. Left Atria The left atrium is normal size. Right Atria The right atrium is normal size. Atrial Septum The atrial septum is grossly normal. Aortic Valve The aortic valve is probable trileaflet and opens well. There is no aortic regurgitation. Pulmonic Valve The pulmonic valve is normal. There is trace pulmonic valve regurgitation. Mitral Valve The mitral valve is normal. There is trace mitral regurgitation. Tricuspid Valve The tricuspid valve is normal. There is trace tricuspid regurgitation. Pericardium/Pleural There is small pericardial effusion. Large left pleural effusion. Inferior Vena Cava Normal inferior vena cava with >50% collapse upon inspiration consistent with normal right atrial pressure, 3 mmHg. Aorta The aortic root at the level of the sinus of Valsalva measures 3.2 cm in diameter. Left Ventricular Outflow Tract Name Value Normal LVOT 2D LVOT Diameter 2.0 cm LVOT Doppler LVOT Peak Gradient 2 mmHg LVOT Mean Gradient 1 mmHg LVOT VTI 12 cm LVOT VTI/AV VTI Ratio 0.5 LVOT Stroke Volume 36 ml LVOT CO 2.9 l/min LVOT CI 1.6 l/min/m2 Pulmonic Valve Name Value Normal RVOT Doppler RVOT Peak Gradient 1 mmHg PV Doppler PV Peak Gradient 2 mmHg Mitral Valve Name Value Normal MV Doppler MV Decel [place] 808 cm/s2 MV PHT 34 ms MV Area (PHT) 6.6 cm2 4.0-5.0 MV Diastolic Function MV E Peak Velocity 93 cm/s MV A Peak Velocity 35 cm/s MV E/A 2.7 MV Decel Time 116 ms MV Annular TDI MV E/e' (Septal) 24.3 <=8.0 MV E/e' (Lateral) 15.5 <=8.0 MV E/e' (Average) 19.9 Tricuspid Valve Name Value Normal TV Regurgitation Doppler TR Peak Velocity 229 cm/s TR Peak Gradient 21 mmHg Estimated PAP/RSVP RA Pressure 3 mmHg <=5 PA Systolic Pressure 24 mmHg <36 RV Systolic Pressure 24 mmHg <36 Aorta Name Value Normal Ascending Aorta Ao Root Diameter (MM) 3.3 cm Ao Root Diam Index (MM) 1.8 cm/m2 Aortic Valve Name Value Normal AV Doppler AV Peak Velocity 121 cm/s AV Peak Gradient 6 mmHg AV Mean Gradient 3 mmHg AV VTI 23 cm AV Area (Cont Eq VTI) 1.6 cm2 >=3.0 AV Area (Cont Eq Ahmet) 1.7 cm2 AV Regurgitation 2D LVOT Area 3.1 cm2 Ventricles Name Value Normal LV Dimensions 2D/MM IVS Diastolic Thickness (2D) 0.8 cm 0.6-1.0 LVID Diastole (2D) 6.2 cm 4.2-5.8 LVIW Diastolic Thickness (2D) 0.8 cm 0.6-1.0 LVID Systole (2D) 5.4 cm 2.5-4.0 LVOT Diameter 2.0 cm LV Mass (2D Cubed) 191.08 g 88.00-224.00 LV Mass Index (2D Cubed) 101 g/m2 49-115 Relative Wall Thickness (2D) 0.26 LV Fractional Shortening/Ejection Fraction 2D/MM LV Fractional Shortening (2D) 12 % 25-43 LV EF (2D Teicholz) 25 % 52-72 LV Diastolic Volume (4C MOD) 135 ml LV EF (4C MOD) 22 % LV Diastolic Volume (2C MOD) 179 ml LV EF (2C MOD) 22 % LV Diastolic Volume (BP MOD) 157 ml 62-150 LV Diastolic Volume Index (BP MOD) 83 ml/m2 34-74 LV Systolic Volume (BP MOD) 124 ml 21-61 LV Systolic Volume Index (BP MOD) 66 ml/m2 11-31 LV EF (BP MOD) 21 % 52-72 LV Diastolic Length (4C) 9.9 cm LV Systolic Length (4C) 9.1 cm LV Stroke Volume (4C MOD) 29 ml Atria Name Value Normal LA Dimensions LA Dimension (MM) 3.2 cm 3.0-4.1 LA Volume (4C A-L) 66 ml LA Volume (BP A-L) 73 ml RA Dimensions RA Area (4C) 11.8 cm2 <=18.0 Report Signatures
[2024-08-09] MEDS: ASPIRIN 81 MG CHEWABLE TABLET PO (08:08)
[2024-08-09] MEDS: FUROSEMIDE INJ 40 MG/4 ML VIAL 20 MG IV PUSH ×2 (08:08→17:47)
[2024-08-09 12:25] LABS: Hematocrit 46.1 % (42.0-52.0); Mean Corpuscular HGB Conc 34.7 g/dl (32-36); Mean Corpuscular Hemoglobin 29.2 pg (26-34); Mean Corpuscular Volume 84.1 fl (80-100); Platelet Count Result 197 k/mm3 (150-375); Red Blood Count 5.48 M/mm3 (4.6-6.20); White Blood Count 7.2 K/mm3 (4.5-10.0)
[2024-08-09 12:35] LABS: Anion Gap 10 mmol/L (4-12); Blood Urea Nitrogen 23 mg/dL (9-20); Calcium 9.8 mg/dL (8.4-10.2); Carbon Dioxide 30 mmol/L (22-30); Chloride 98 mmol/L (98-107); Estimated CRCL calculation 90 ml/min; Estimated Glomerular Filt Rate > 60; Glucose 113 mg/dL (65-110); Magnesium 2.1 mg/dL (1.6-2.3); Potassium 4.2 mmol/L (3.4-5.0); Sodium 138 mmol/L (137-145)
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
[2024-08-10] VITALS (31 sets, daily range): BP systolic 93–140; BP diastolic 65–91; PULSE 65–86; RESP 13–20; TEMP 36.3–36.9; O2SAT 91–98
[2024-08-10 04:37] LABS: Hematocrit 43.8 % (42.0-52.0); Hemoglobin 15.2 g/dL (14.0-18.0); Mean Corpuscular HGB Conc 34.7 g/dl (32-36); Mean Corpuscular Hemoglobin 29.2 pg (26-34); Mean Corpuscular Volume 84.1 fl (80-100); Mean Platelet Volume 9.3 fl (7.4-10.4); Platelet Count Result 204 k/mm3 (150-375); Red Blood Count 5.21 M/mm3 (4.6-6.20); Red Cell Distribution Width 14.7 % (11.5-14.5); White Blood Count 7.9 K/mm3 (4.5-10.0)
[2024-08-10 04:49] LABS: Anion Gap 10 mmol/L (4-12); Blood Urea Nitrogen 24 mg/dL (9-20); Calcium 9.4 mg/dL (8.4-10.2); Carbon Dioxide 30 mmol/L (22-30); Chloride 97 mmol/L (98-107); Estimated CRCL calculation 91 ml/min; Estimated Glomerular Filt Rate > 60; Glucose 95 mg/dL (65-110); Magnesium 2.2 mg/dL (1.6-2.3); Potassium 4.1 mmol/L (3.4-5.0); Sodium 137 mmol/L (137-145)
[2024-08-10] MEDS: ASPIRIN 81 MG CHEWABLE TABLET PO (08:55)
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
--- NOTE | 2024-08-10 09:58 | WPDMODSED ---
Moderate Sedation Note-Pt Data Patient Data Diagnosis: Heart failure with reduced LVEF Present Complaint: Heart failure with reduced LVEF Procedure to be performed/Plan: Coronary angiography, left heart cath, +/- PCI Allergies Allergy/AdvReac Type Severity Reaction Status Date / Time No Known Allergies Allergy Verified 08/07/24 04:15 Home Medications ?Medication ?Instructions ?Recorded ?Confirmed ?Type ibuprofen 100 mg tablet 200 mg PO ONCE PRN pain 08/07/24 08/07/24 History Current Medications: Active Medications Acetaminophen (Acetaminophen 325 Mg Tablet) 650 mg PO Q4H PRN PRN Reason: Mild Pain (1-3) or Fever Last Admin: 08/07/24 20:53 Dose: 650 mg Aspirin (Aspirin 81 Mg Chewable Tablet) 81 mg PO DAILY@0800 KIM Last Admin: 08/10/24 08:55 Dose: 81 mg Nitroglycerin (Nitroglycerin Sl 0.4 Mg Tablet) 0.4 mg SUBLINGUAL Q5MIN PRN PRN Reason: Chest Pain Perflutren Lipid Microsphere (Perflutren Lipid Microspheres 1.5 Ml Vial Diluted To 10 Ml Total Volume) 0 ml IV PUSH ONCE PRN; Protocol PRN Reason: adequate visualization Stop: 08/10/24 13:17 Sedation/Anesthesia: No previous sedation/anesthesia problems (including family history). [facility] Past Medical History Medical History History of radiation therapy History of chemotherapy Non-Hodgkin's lymphoma Chronic back pain Seizure Cataracts, bilateral Surgical History Surgical History History of spinal fusion History of neck surgery History of cataract surgery Social History Social History Smoking packs per day: 2 Smoking cigarettes per day: 40.0 Years smoked: 10 Smoking pack-years: 20.00 Smoking status: Former smoker Tobacco type: cigarettes Alcohol intake: current Drinks per week: 1 Substance use: never Substance use type: does not use Do You Feel Safe in your Home?: Yes Lack of Transportation: No Lack of Food: Never True Current Housing: I Have Housing Concerned About Future Housing: No Difficulty Paying Gas/Electric Bills: YES Difficulty Paying for Meds: No Currently Unemployed: No Education: Decline to Answer Difficulty w/ Childcare or Family Care: No Gender identity (if verbalized by the patient): Male Sexual Orientation (if Verbalized by the Patient): Straight or Heterosexual Spiritual care concerns: No Mod Sed Physical Exam Physical Exam Pre Procedural Exam: Normal: Appearance, Lungs, Heart Rate, Heart Rhythm, Extremities and Skin Hours since solid foods: 12 Hours since liquid intake: 8 Mallampati Classification: class III Internal Medicine - PN: Obj Da Vital Signs Vital Signs: Vital Signs - 24 hr 08/09/24 10:00 08/09/24 12:00 08/09/24 12:00 Temperature 36.8 C Pulse Rate 82 77 87 Respiratory Rate 16 Blood Pressure 132/83 Pulse Oximetry 98 Oxygen Delivery 08/09/24 14:00 08/09/24 16:00 08/09/24 16:00 Temperature 36.6 C Pulse Rate 82 74 72 Respiratory Rate 16 Blood Pressure 127/86 Pulse Oximetry 99 Oxygen Delivery 08/09/24 18:00 08/09/24 19:56 08/09/24 20:00 Temperature 36.9 C Pulse Rate 95 79 Respiratory Rate 16 Blood Pressure 116/79 Pulse Oximetry 94 Oxygen Delivery Room Air 08/09/24 20:00 08/09/24 22:00 08/09/24 22:59 Temperature 36.8 C Pulse Rate 78 89 78 Respiratory Rate 16 Blood Pressure 124/82 Pulse Oximetry 94 Oxygen Delivery 08/09/24 23:16 08/10/24 00:00 08/10/24 02:00 Temperature Pulse Rate 70 73 Respiratory Rate Blood Pressure Pulse Oximetry Oxygen Delivery Room Air 08/10/24 03:25 08/10/24 03:45 08/10/24 04:00 Temperature 36.7 C Pulse Rate 77 67 Respiratory Rate 18 Blood Pressure 120/86 Pulse Oximetry 91 Oxygen Delivery Room Air 08/10/24 06:00 08/10/24 07:59 08/10/24 08:00 Temperature 36.8 C Pulse Rate 76 79 70 Respiratory Rate 18 Blood Pressure 118/86 Pulse Oximetry 98 Oxygen Delivery 08/10/24 08:55 Temperature Pulse Rate 82 Respiratory Rate Blood Pressure Pulse Oximetry Oxygen Delivery Room Air Intake/Output Intake/Output: Intake & Output 08/07/24 08/08/24 08/09/24 08/10/24 23:59 23:59 23:59 23:59 Intake Total 490 1420 1510 550 Output Total 1400 200 475 Balance -910 1220 1510 75 Meds/Results Medications: Active Medications Generic Name Dose Route Start Last Admin Trade Name Lisa PRN Reason Stop Dose Admin Acetaminophen 650 mg 08/07/24 20:43 08/07/24 20:53 Acetaminophen 325 Mg Tablet PO 650 mg Q4H PRN Administration Mild Pain (1-3) or Fever Aspirin 81 mg 08/08/24 08:00 08/10/24 08:55 Aspirin 81 Mg Chewable Tablet PO 81 mg DAILY@0800 KIM Administration Nitroglycerin 0.4 mg 08/07/24 13:17 Nitroglycerin Sl 0.4 Mg Tablet SUBLINGUAL Q5MIN PRN Chest Pain Perflutren Lipid Microsphere 0 ml 08/07/24 13:17 Perflutren Lipid Microspheres 1.5 Ml Vial Diluted To 10 Ml Total Volume IV PUSH 08/10/24 13:17 ONCE PRN adequate visualization Protocol Radiology Results: ITS Impressions Chest X-Ray 08/07/24 07:03 Impression: Mild patchy bilateral airspace disease. Correlate for mild pulmonary edema versus infection. Chest CTA 08/07/24 08:54 Impression: No evidence of pulmonary embolus, aortic dissection, or aortic aneurysm. Small bilateral pleural effusions with mild patchy alveolar and interstitial pulmonary edema pattern. Correlate clinically for infection, which is felt to be somewhat less likely. Labs 08/10/24 03:52 08/10/24 03:52 Labs: Laboratory Results - last 24 hr 08/09/24 08/10/24 12:18 03:52 WBC 7.2 7.9 RBC 5.48 5.21 Hgb 16.0 15.2 Hct 46.1 43.8 MCV 84.1 84.1 MCH 29.2 29.2 MCHC 34.7 34.7 RDW 15.0 H 14.7 H Plt Count 197 204 MPV 9.0 9.3 Sodium 138 137 Potassium 4.2 4.1 Chloride 98 97 L Carbon Dioxide 30 30 Anion Gap 10 10 BUN 23 H 24 H Creatinine 0.86 0.83 Estim Creat Clear Calc 90 91 Estimated GFR > 60 > 60 Glucose 113 H 95 Calcium 9.8 9.4 Magnesium 2.1 2.2 ASA Classification/Sedation ASA Classification/Sedation ASA Class: III Emergent: No Risks: Risks, benefits and alternatives explained and patient/family accepted plan for sedation. Patient re-evaluated immediately prior to sedation.
--- NOTE | 2024-08-10 15:22 | P.PCNCC_ITS ---
Cardiac Cath Procedure Note Date of procedure:: 08/10/24 Performing physician:: CATHETERIZATION LABORATORY REPORT Procedure Date: 08/10/2024 Textile Coating Machine Operator: Jhoana Mueller M.D., [facility]? Referring Physician: Jhoana Mueller M.D. ? Anesthesia: Versed and Fentanyl were ordered and given in my presence at 14:54, procedure ended at 15:15. Supervision of nurse monitored moderate sedation with Versed and Fentanyl was provided for 21 minutes. Total of Versed 2mg and Fentanyl 100mcg were administered by the Engineering Analyst RN Hao Villarreal. Pre-op Diagnosis: Coronary artery disease Post-op Diagnosis: 1. Non-obstructive coronary artery disease. Slow flow in the coronary arteries. 2. Left ventricular end-diastolic pressure of 14mmHg. Procedure(s): 1. Moderate sedation 2. Ultrasound-guided access of the right radial artery 3. Coronary angiography 4. Left heart cath Access Site: Right radial artery Brief History and Clinical Indications: Patient is a 54 year old male who is referred for [facility] for new diagnosis of heart failure with reduced LVEF. All risks, benefits and alternatives to left heart catheterization with or without percutaneous coronary intervention was discussed at length with the patient. Risk of complications including but not limited to bleeding, infection, arrhythmia, stroke, worsening kidney function, blood loss, groin hematoma, limb loss, emergency coronary artery bypass grafting, and even were discussed with the patient and all questions were answered. The patient understood and wished to proceed. Time out called, patient name, date of , medical record number, allergies, procedure performed, identify Textile Coating Machine Operator, patient and staff member concurred with accurate data, procedure carried on. Findings: LEFT HEART CATHETERIZATION FINDINGS: 1. Left main: The left main coronary artery is widely patent without any significant obstructive disease. 2. Left anterior descending: Slow flow noted in the LAD. There is mild 40% disease in the mid portion. No significant obstructive angiographic disease. 3. Left circumflex: The left circumflex is co-dominant. The left circumflex artery has mild disease in the mid portion. OM branch has luminal ir regularities. No significant obstructive angiographic disease. 4. Right coronary artery: The RCA is a co-dominant vessel. Slow flow noted in the RCA. The RCA has diffuse mild disease with a moderate 50% stenosis in the mid portion. No significant obstructive angiographic disease. 5. Left ventricle: A. End-diastolic pressure 14 mmHg. B. LV gram deferred. C. No significant gradient across aortic valve on catheter pullback. Description of Procedure: Informed consent signed and placed in the chart. Patient transferred to minilab operator room. Prepped and draped in usual sterile fashion. 2% lidocaine injected subcutaneously in right wrist area. 22-gauge venipuncture catheter used to access the right radial artery under ultrasound guidance. 6-FR slender sheath placed in right radial artery. Nitroglycerine and Verapamil were given intraarterial through the sheath. Versacore wire advanced under fluoroscopy 5F Tig 4 diagnostic catheter engaged Left Main Coronary Artery. 5F Tig 4 diagnostic catheter engaged Right Coronary Artery Multiple orthogonal angiogram obtained and reviewed 5F Pigtail diagnostic catheter crossed aortic valve to obtain LVEDP, LV angiogram deferred. Hemostasis was achieved by application of TR band. Disposition: Floor Plan: The patient will be monitored in the recovery area. Continue aggressive medical therapy and risk factor modification. ? Jhoana Mueller M.D. Interventional Cardiology
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
[2024-08-10] MEDS: ACETAMINOPHEN 325 MG TABLET 650 MG PO (20:03)
[2024-08-10] MEDS: SACUBITRIL/VALSARTAN 24-26 MG TABLET 1 TAB PO (20:03)
[2024-08-11] VITALS (10 sets, daily range): BP systolic 103–130; BP diastolic 60–68; PULSE 59–85; RESP 18; TEMP 36.7–37.1; O2SAT 96–97
[2024-08-11 04:37] LABS: Hematocrit 43.6 % (42.0-52.0); Hemoglobin 15.1 g/dL (14.0-18.0); Mean Corpuscular HGB Conc 34.6 g/dl (32-36); Mean Corpuscular Hemoglobin 29.5 pg (26-34); Mean Corpuscular Volume 85.3 fl (80-100); Mean Platelet Volume 9.6 fl (7.4-10.4); Platelet Count Result 184 k/mm3 (150-375); Red Blood Count 5.11 M/mm3 (4.6-6.20); Red Cell Distribution Width 14.6 % (11.5-14.5); White Blood Count 6.6 K/mm3 (4.5-10.0)
[2024-08-11 04:47] LABS: Anion Gap 9 mmol/L (4-12); Blood Urea Nitrogen 25 mg/dL (9-20); Calcium 9.4 mg/dL (8.4-10.2); Carbon Dioxide 29 mmol/L (22-30); Chloride 97 mmol/L (98-107); Estimated CRCL calculation 97 ml/min; Estimated Glomerular Filt Rate > 60; Glucose 91 mg/dL (65-110); Magnesium 2.3 mg/dL (1.6-2.3); Potassium 4.6 mmol/L (3.4-5.0); Sodium 135 mmol/L (137-145)
[2024-08-11] MEDS: ASPIRIN 81 MG CHEWABLE TABLET PO (08:42)
[2024-08-11] MEDS: SACUBITRIL/VALSARTAN 24-26 MG TABLET 1 TAB PO (08:43)
[2024-08-11] MEDS: METOPROLOL SUCCINATE EXT REL 50 MG TABCR PO (08:43)
[2024-08-11] MEDS: ATORVASTATIN 40 MG TABLET 80 MG PO (08:43)
[2024-08-11] MEDS: ACETAMINOPHEN 325 MG TABLET 650 MG PO (08:59)
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
--- NOTE | 2024-08-11 13:47 | P.DS_ITS ---
DS: Summary Time Spent with Patient Time attestation: Total time spent providing and/or coordinating discharge services: DS: Data Data Completed and Pending Labs on day of discharge: Labs from last 24 hours 08/11/24 03:50 WBC 6.6 RBC 5.11 Hgb 15.1 Hct 43.6 MCV 85.3 MCH 29.5 MCHC 34.6 RDW 14.6 H Plt Count 184 MPV 9.6 Sodium 135 L Potassium 4.6 Chloride 97 L Carbon Dioxide 29 Anion Gap 9 BUN 25 H Creatinine 0.78 Estim Creat Clear Calc 97 Estimated GFR > 60 Glucose 91 Calcium 9.4 Magnesium 2.3 Discharge Plan Discharge Attending physician on discharge: Shea Young Consulting providers: Tejas Zimmerman Discharging Clinician: Shea Young Patient Disposition: Home, Self-Care Activity: as tolerated Diet: heart healthy Discharge Instructions: patient to follow discharge care instruction from his grant specialist and follow up as scheduled, patient to follow up with his primary care provider as soon as possible. patient is instructed if any if symptom redevelop to go to nearest ER. Patient Instructions: Antibiotic Form, Heart Failure (GEN) Patient Language: Slovenian Stand Alone Forms: General Discharge Information Follow-up/Referrals: Tejas Zimmerman MD [Physician] - UNKNOWN,DOCTOR [Primary Care Provider] - Discharge Medications: New metoprolol succinate 50 mg Tablet Extended Release 24 Hr 50 mg PO QAM Qty: 30 0RF atorvastatin 40 mg Tablet 80 mg PO DAILY Qty: 30 0RF aspirin [Children's Aspirin] 81 mg Tablet,Chewable 81 mg PO DAILY@0800 Qty: 30 0RF nitroglycerin [Nitrostat] 0.4 mg Tablet, Sublingual 0.4 mg sublingual Q5MIN PRN (Reason: Chest Pain) Qty: 26 0RF Entresto 24-26 mg Tablet 1 tab PO Q12HR Qty: 60 0RF Held ibuprofen 100 mg tablet 200 mg PO ONCE PRN (Reason: pain) Hold Instructions: until seen by his primary care provider. Date of admission: 08/10/24 15:38 Primary Care Provider: UNKNOWN,DOCTOR Admitting Provider: Shea Young Attending physician on admission: Shea Young Condition: Stable
== END 2024-08-11 14:25 | disposition home or self-care (01) | DRG 287 ==
LOC: ANHED 12:38 → ANHIMU 13:35
PROVIDERS: Emergency Medicine; Internal Medicine; Student in an Organized Health Care Education/Training Program; Admitting Provider Family Medicine; Emergency Provider Emergency Medicine; Visit Provider Family Medicine
PROC: 4A023N7 Measurement of Cardiac Sampling and Pressure, Left Heart, Percutaneous Approach (ICD-10-PCS; CPT 93452; principal; 2024-08-10 11:30)
DX: I50.21 Acute systolic (congestive) heart failure (principal); M94.0 Chondrocostal junction syndrome [Tietze]; I25.10 Atherosclerotic heart disease of native coronary artery without angina pectoris; M54.9 Dorsalgia, unspecified; G89.29 Other chronic pain; H72.92 Unspecified perforation of tympanic membrane, left ear; Z85.72 Personal history of non-Hodgkin lymphomas; Z98.1 Arthrodesis status; Z87.891 Personal history of nicotine dependence
CPT/HCPCS: 36415; 71046; 71275; 80048; 80053; 80061; 81001; 82948; 83690; 83718; 83721; 83735; 83880; 84439; 84443; 84478; 84480; 84484; 85025; 85027; 85610; 85730; 87086; 93005; 93306; 93458; 94640; 96374; 96376; 99285; A9270; C1769; C1887; G0378; J0461; J1644; J1940; J2003; J2250; J2305; J3010; J7040; Q9967